=== PATIENT | female | born 1945 ===

== ENCOUNTER 2017-07-27 09:29 | Inpatient (IN) | payer MEDICARE, MEDICAID ==
--- NOTE | 2017-07-27 10:00 | ED PDOC ---
HPI:STROKE - Historian Historian: Patient - Onset Date: 07/21/17 Time: 01:00 - Timing Timing: Improved - TPA Positive for Contraindication: Yes - Notes: Notes:: Pt presents to ED with c/o "I had a stroke". Reports twisting of R side of face that started at 1 AM on 07/21/17, did not seek medical attention at that time. Also reports weakness of R eye, heaviness to R arm and R sided ROACH. Able to ambulate without assistance. States facial symptom has gotten better since then. Denies CP, SOB, nausea, vomiting, visual changes. NIHSS Stroke Scale - Date/Time Evaluation Performed Date Performed: 07/27/17 Time Performed: 09:50 When Was NIHSS Performed: Baseline - How Severe is the Stroke Level of Consciousness: 0=Alert LOC to Questions: 0=Both comments correct LOC to commands: 0=Obeys both correctly Best Gaze: 0=Normal Visual: 0=No visual loss Facial: 0=Normal Motor Arm - Left: 0=No drift Motor Arm - Right: 0=No drift Motor Leg - Left: 0=No drift Motor Leg - Right: 1=Drift before 5 sec Limb Ataxia: 0=Absent Sensory: 0=Normal Best Language: 0=No aphasia Dysarthia: 0=Normal articulation Extinction & Inattention (Neglect): 0=Normal, no object Score: 1 rTPA Inclusion/Exclusion - Refusal of Treatment Patient Refused Treatment: No - Inclusion Criteria for Altepase Patient is 18 years or Older: Yes The Clinical Diagnosis of Ischemic Stroke That is Causing a Potentially Disabling Neurological Deficit: No Time of Onset is Well Established to be Less Than 270 Minute Before Treatment Would Begin: No Risk/Benefit Discussed With Patient/Family Member Present: No Past Medical History Vital Signs: Last Vital Signs Temp 98.2 F 07/27/17 09:43 Pulse 77 07/27/17 09:43 Resp 19 07/27/17 09:43 BP 134/55 L 07/27/17 09:43 Pulse Ox 100 07/27/17 09:43 - Medical History PMH: Arthritis, Asthma, Diabetes, HTN, Hypercholesterolemia, Osteoporosis, Pancreatitis, TIA - Surgical History Surgical History: - Family History Family History: States: Unknown Family Hx - Living Arrangements Living Arrangements: Alone - Social History Current smoker - smoking cessation education provided: No Alcohol: None - Allergies Allergies/Adverse Reactions: Allergies Allergy/AdvReac Type Severity Reaction Status Date / Time iodine AdvReac ANAPHYLAXIS Verified 07/27/17 09:47 shellfish derived AdvReac ANAPHYLAXIS Verified 07/27/17 09:47 sulfacetamide AdvReac ANAPHYLAXIS Verified 07/27/17 09:47 [From Sulfamide] Review of Systems Constitutional: Negative for: Fever, Chills Eyes: Negative for: Vision Change Cardiovascular: Negative for: Chest Pain, Palpitations Respiratory: Negative for: Cough, Shortness of Breath Gastrointestinal: Negative for: Nausea, Vomiting, Abdominal Pain, Diarrhea Genitourinary Female: Negative for: Dysuria, Hematuria Musculoskeletal: Negative for: Neck Pain, Back Pain Skin: Negative for: Rash, Lesions Neurological: Positive for: Weakness, Numbness, Headache. Negative for: Incoordination, Change in Speech, Confusion, Seizures, Altered Mental Status, Dizziness Physical Exam - Reviewed Nursing Documentation Reviewed: Yes Vital Signs Reviewed: Yes - Physical Exam Appears: Positive for: Well, No Acute Distress Head Exam: Positive for: ATRAUMATIC, NORMAL INSPECTION Skin: Positive for: Normal Color, Warm, Dry Eye Exam: Positive for: Normal appearance, EOMI, PERRL Neck: Positive for: Normal Cardiovascular/Chest: Positive for: Regular Rate, Rhythm Respiratory: Positive for: Normal Breath Sounds. Negative for: Rales, Rhonchi, Wheezing Gastrointestinal/Abdominal: Positive for: Normal Exam Back: Positive for: Normal Inspection Extremity: Positive for: Normal ROM Neurologic/Psych: Positive for: Alert, documentation coordinator II-XII, Oriented, Motor/Sensory Deficits (RLE), Cerebellar Tests (WNL). Negative for: Aphasia, Facial Droop - Laboratory Results Result Diagrams: 07/27/17 10:09 07/27/17 10:09 - ECG Interpretation Of ECG: NSR @ 67, no ST-T changes. O2 Sat by Pulse Oximetry: 100 Pulse Ox Interpretation: Normal - Physician Consult Information Time Consulting Physican Contacted: 13:02 Physician Contacted: Sharona Damon Medical Decision Making Medical Decision Makin yo female with R sided deficits. - labs - EKG - CXR - CT head - ASA Accession No. : [id number] Patient Name / ID : BELÉN Mcdonough / [id number] Exam Date : 07/27/2017 09:55:28 ( Approved ) Study Comment : Sex / Age : F / 72Y Creator : Ryan Fajardo MD Dictator : Ryan Fajardo MD Artifacts Conservator : Library Customer Service Clerk : Ryan Fajardo MD Approver2 : Report Date : 07/27/2017 11:45:33 My Comment : HISTORY: CVA COMPARISON: Chest radiograph dated 05/14/2011 FINDINGS: LUNGS: Biapical scarring. No active pulmonary disease. PLEURA: No significant pleural effusion identified, no pneumothorax apparent. CARDIOVASCULAR: Normal. OSSEOUS STRUCTURES: Unchanged. VISUALIZED UPPER ABDOMEN: Normal. OTHER FINDINGS: None. IMPRESSION: No active disease. Accession No. : [id number] Patient Name / ID : BELÉN COLIN / [id number] Exam Date : 07/27/2017 10:11:10 ( Approved ) Study Comment : Sex / Age : F / 72Y Creator : Ryan Fajardo MD Dictator : Ryan Fajardo MD Artifacts Conservator : Library Customer Service Clerk : Ryan Fajardo MD Approver2 : Report Date : 07/27/2017 10:31:22 My Comment : PROCEDURE: CT HEAD WITHOUT CONTRAST. HISTORY: code stroke COMPARISON: CT head dated 03/30/2015. TECHNIQUE: Axial computed tomography images were obtained through the head/brain without intravenous contrast. Radiation dose: Total exam DLP = 799.7 mGy-cm. This CT exam was performed using one or more of the following dose reduction techniques: Automated exposure control, adjustment of the mA and/or kV according to patient size, and/or use of iterative reconstruction technique. FINDINGS: HEMORRHAGE: No intracranial hemorrhage. BRAIN: No mass effect or edema. Mild atrophy. Mild chronic periventricular white matter microvascular ischemic changes. VENTRICLES: Mildly prominent. No hydrocephalus. CALVARIUM: Unremarkable. PARANASAL SINUSES: Unremarkable as visualized. No significant inflammatory changes. MASTOID AIR CELLS: Unremarkable as visualized. No inflammatory changes. OTHER FINDINGS: None. IMPRESSION: No acute intracranial pathology. Disposition - Clinical Impression Clinical Impression: TIA (transient ischemic attack) - Patient ED Disposition Is Patient to be Admitted: Yes - Disposition Disposition Time: 12:58 Condition: STABLE Forms: Vouch (Wolof) - Pt Status Changed To: Hospital Disposition Of: Inpatient - Admit Certification Admit to Inpatient:: After my assessment, the patient will require hospitalization for at least two midnights. This is because of the severity of symptoms shown, intensity of services needed, and/or the medical risk in this patient being treated as an outpatient. - POA Present On Arrival: Poor Glycemic Control
[2017-07-27 10:14] LABS: BASO % 0.7 % (0.0-2.0); EOS # 0.2 K/uL (0.0-0.7); EOS % 3.3 % (0.0-4.0); HEMOGLOBIN 11.7 g/dL (12.0-16.0); LYMPH # 1.1 K/uL (1.0-4.3); LYMPH % 19.5 % (20.0-40.0); MEAN CELL VOLUME 88.2 fl (81.0-99.0); MEAN CORPUSCULAR HEMOGLOBIN 29.2 pg (27.0-31.0); MEAN CORPUSCULAR HGB CONC 33.1 g/dL (33.0-37.0); MEAN PLATELET VOLUME 8.2 fl (7.2-11.7); MONO # 0.6 K/uL (0.0-0.8); MONO % 9.7 % (0.0-10.0); NEUT # 3.8 K/uL (1.8-7.0); NEUT % 66.8 % (50.0-75.0); RED CELL DISTRIBUTION WIDTH 13.1 % (11.5-14.5); WHITE BLOOD COUNT 5.7 K/uL (4.8-10.8)
[2017-07-27 10:30] LABS: INR 1.1 (0.9-1.2); PROTHROMBIN TIME 12.1 Seconds (9.8-13.1)
--- NOTE | 2017-07-27 10:32 | CT ---
PROCEDURE: CT HEAD WITHOUT CONTRAST. HISTORY: code stroke COMPARISON: CT head dated 03/30/2015. TECHNIQUE: Axial computed tomography images were obtained through the head/brain without intravenous contrast. Radiation dose: Total exam DLP = 799.7 mGy-cm. This CT exam was performed using one or more of the following dose reduction techniques: Automated exposure control, adjustment of the mA and/or kV according to patient size, and/or use of iterative reconstruction technique. FINDINGS: HEMORRHAGE: No intracranial hemorrhage. BRAIN: No mass effect or edema. Mild atrophy. Mild chronic periventricular white matter microvascular ischemic changes. VENTRICLES: Mildly prominent. No hydrocephalus. CALVARIUM: Unremarkable. PARANASAL SINUSES: Unremarkable as visualized. No significant inflammatory changes. MASTOID AIR CELLS: Unremarkable as visualized. No inflammatory changes. OTHER FINDINGS: None. IMPRESSION: No acute intracranial pathology. Findings conveyed to Dr. Shaikh by Dr. Marx at 10:30 a.m. on 07/27/2017.
[2017-07-27 10:33] LABS: ALB/GLOB RATIO 1.3 (1.0-2.1); ALBUMIN 4.1 g/dL (3.5-5.0); ALT/SGPT 28 U/L (9-52); AST/SGOT 23 U/L (14-36); BLOOD UREA NITROGEN 16 mg/dl (7-17); CALCIUM 9.6 mg/dL (8.4-10.2); GFR AFRICAN-AMERICAN > 60; GFR NON-AFRICAN AMERICAN > 60; HDL CHOLESTEROL 46 MG/DL (30-70)
[2017-07-27 10:46] LABS: LDL CHOLESTEROL 40 mg/dL (0-129)
--- NOTE | 2017-07-27 11:47 | RAD ---
HISTORY: CVA COMPARISON: Chest radiograph dated 05/14/2011 FINDINGS: LUNGS: Biapical scarring. No active pulmonary disease. PLEURA: No significant pleural effusion identified, no pneumothorax apparent. CARDIOVASCULAR: Normal. OSSEOUS STRUCTURES: Unchanged. VISUALIZED UPPER ABDOMEN: Normal. OTHER FINDINGS: None. IMPRESSION: No active disease.
[2017-07-27] MEDS ORDERED: Insulin Regular 100 units/ml IV STA (12:58)
[2017-07-27] MEDS ORDERED: Insulin Regular 100 units/ml ONE (13:50)
[2017-07-27] MEDS ORDERED: Pantoprazole 40 mg EC Tab PO PRN (14:01)
--- NOTE | 2017-07-27 16:38 | CP.PCM.HP ---
<Diamond Burnette - Last Filed: 07/27/17 16:49> History of Present Illness - History of Present Illness History of Present Illness: 72 YO F who presents to the ER for Right sided weakness which started on 07/21/17 at 1am. Her son had told her that the right side of her face was asymetrical to the otherside and she felt weakness in her right arm as well. At that time she took her blood pressure and systolic is 180, she took her blood pressure medication and did not follow up with any medical professional at that time. She felt as her right arm felt heavy. Patient feels as if she is having increase in stiffness in her right arm and increase in discomfort. States she is unable to close her right hand. Denies any falls or head trauma. She is able to ambulate without any difficulties, is able to eat and speak without any difficulties. She had a similar episodes 2 years ago for which she stayed overnight in the hospital , however that was for the left side. PMH: DM 2, HTN, Hyperlipidemia, Breast cancer(1989), PSH: Left Mastectomy: 1989, hysterectomy 1991, Stomach surgery? Allergy: Ioddine: Contrast for CT scan caused her to have severe allergic reaction. Shellfish, Sulfa, Bactrim PMD: Dr. Dyson Present on Admission - Present on Admission Any Indicators Present on Admission: No Review of Systems - Review of Systems All systems: reviewed and no additional remarkable complaints except Past Patient History - Infectious Disease Hx of Infectious Diseases: None - Past Social History Smoking Status: Never Smoked - CARDIAC Hx Hypercholesterolemia: Yes Hx Hypertension: Yes - PULMONARY Hx Asthma: Yes - NEUROLOGICAL Hx Transient Ischemic Attacks (TIA): Yes - HEENT Hx HEENT Problems: No - RENAL Other/Comment: Renal disease - ENDOCRINE/METABOLIC Hx Diabetes Mellitus Type 2: Yes - HEMATOLOGICAL/ONCOLOGICAL Hx Cancer: Yes (Breast) - INTEGUMENTARY Hx Dermatological Problems: No - MUSCULOSKELETAL/RHEUMATOLOGICAL Hx Arthritis: Yes Hx Osteoporosis: Yes - GASTROINTESTINAL Hx Pancreatitis: Yes - GENITOURINARY/GYNECOLOGICAL Hx Genitourinary Disorders: No - PSYCHIATRIC Hx Psychophysiologic Disorder: No Hx Substance Use: No - SURGICAL HISTORY Hx Section: Yes Hx Hysterectomy: Yes Hx Mastectomy: Yes Other/Comment: Abdominal surgery for intestinal obstruction. - ANESTHESIA Hx Anesthesia: Yes Hx Anesthesia Reactions: No Hx Malignant Hyperthermia: No Meds Allergies/Adverse Reactions: Allergies Allergy/AdvReac Type Severity Reaction Status Date / Time iodine AdvReac ANAPHYLAXIS Verified 07/27/17 09:47 shellfish derived AdvReac ANAPHYLAXIS Verified 07/27/17 09:47 sulfacetamide AdvReac ANAPHYLAXIS Verified 07/27/17 09:47 [From Sulfamide] Physical Exam - Constitutional Appears: No Acute Distress - Head Exam Head Exam: NORMAL INSPECTION - Eye Exam Eye Exam: Normal appearance - Respiratory Exam Respiratory Exam: Clear to Auscultation Bilateral, NORMAL BREATHING PATTERN. absent: Rhonchi, Wheezes - Cardiovascular Exam Cardiovascular Exam: REGULAR RHYTHM, +S1, +S2 - GI/Abdominal Exam GI & Abdominal Exam: Normal Bowel Sounds, Soft. absent: Tenderness - Neurological Exam Neurological exam: Alert, CN II-XII Intact, Oriented x3 Additional comments: Right hand weakness on church warden compared to left hand. Cerebellar test WNL. DTR 2+ b /l. Sensation intact - Skin Skin Exam: Normal Color, Warm Results - Vital Signs Recent Vital Signs: Last Vital Signs Temp 98.2 F 07/27/17 14:38 Pulse 78 07/27/17 14:38 Resp 18 07/27/17 14:38 BP 130/68 07/27/17 14:38 Pulse Ox 100 07/27/17 14:38 - Labs Result Diagrams: 07/27/17 10:09 07/27/17 10:09 Labs: Laboratory Results - last 24 hr 07/27/17 07/27/17 07/27/17 10:07 10:09 10:09 WBC 5.7 RBC 4.00 Hgb 11.7 L Hct 35.3 MCV 88.2 MCH 29.2 MCHC 33.1 RDW 13.1 Plt Count 192 MPV 8.2 Neut % (Auto) 66.8 Lymph % (Auto) 19.[address] [place] % (Auto) 9.7 Eos % (Auto) 3.3 Baso % (Auto) 0.7 Neut # (Auto) 3.8 Lymph # (Auto) 1.1 [place] # (Auto) 0.6 Eos # (Auto) 0.2 Baso # (Auto) 0.0 PT INR APTT Sodium 141 Potassium 4.5 Chloride 100 Carbon Dioxide 30 Anion Gap 16 BUN 16 Creatinine 0.6 L Est GFR ( Amer) > 60 Est GFR (Non-Af Amer) > 60 POC Glucose (mg/dL) 199 H Random Glucose 237 H Calcium 9.6 Total Bilirubin 0.3 AST 23 ALT 28 Alkaline Phosphatase 60 Troponin I < 0.0120 Total Protein 7.2 Albumin 4.1 Globulin 3.1 Albumin/Globulin Ratio 1.3 Triglycerides 87 Cholesterol 113 LDL Cholesterol Direct 40 HDL Cholesterol 46 Blood Type Antibody Screen BBK History Checked 07/27/17 07/27/17 10:09 10:19 WBC RBC Hgb Hct MCV MCH MCHC RDW Plt Count MPV Neut % (Auto) Lymph % (Auto) [place] % (Auto) Eos % (Auto) Baso % (Auto) Neut # (Auto) Lymph # (Auto) [place] # (Auto) Eos # (Auto) Baso # (Auto) PT 12.1 INR 1.1 APTT 29.0 Sodium Potassium Chloride Carbon Dioxide Anion Gap BUN Creatinine Est GFR ( Amer) Est GFR (Non-Af Amer) POC Glucose (mg/dL) Random Glucose Calcium Total Bilirubin AST ALT Alkaline Phosphatase Troponin I Total Protein Albumin Globulin Albumin/Globulin Ratio Triglycerides Cholesterol LDL Cholesterol Direct HDL Cholesterol Blood Type A POSITIVE Antibody Screen Negative BBK History Checked Patient has bt Assessment & Plan - Assessment and Plan (Free Text) Assessment: 1) Right sided weakness - C/W low dose asprin - Neurology consulted - CT scan: Did not show any active bleeding - MRI w/ and w/o contrast ordered - Pt ordered - Will admit patiet for observation 2) HTN Lisinopril 2.5 daily 3) HLD Atrovastatin 20 mg 4) DM2 Metformin 500 mg BID 5) DVT prophylaxis - SCD <Yousif Nathan - Last Filed: 07/29/17 13:05> Results - Vital Signs Recent Vital Signs: Last Vital Signs Temp 98.4 F 07/29/17 13:00 Pulse 76 07/29/17 13:00 Resp 18 07/29/17 13:00 BP 112/60 07/29/17 13:00 Pulse Ox 97 07/29/17 13:00 - Labs Result Diagrams: 07/27/17 10:09 07/27/17 10:09 Labs: Laboratory Results - last 24 hr 07/28/17 07/28/17 07/29/17 16:21 21:23 06:41 POC Glucose (mg/dL) 143 H 149 H 134 H 07/29/17 11:20 POC Glucose (mg/dL) 266 H Assessment & Plan - Assessment and Plan (Free Text) Plan: I was present during the evaluation and discussed with Dr Burnette re plans of care and mgt. Yousif Nathan M.D.
[2017-07-27] MEDS ORDERED: Dextrose 50% SYRINGE Inj (50 ml) IV PRN (16:51)
[2017-07-27] MEDS ORDERED: Glucagon Recombinant 1 mg Inj IM PRN (16:51)
[2017-07-27] MEDS ORDERED: Gadodiamide 287 MG/ML VIAL (15ML) IV ONE (18:09)
--- NOTE | 2017-07-27 20:36 | MRI ---
EXAM: MR Head Without Intravenous Contrast CLINICAL HISTORY: 72 years old, female; Signs and symptoms; Other: TIA symptoms TECHNIQUE: Magnetic resonance images of the head/brain without intravenous contrast in multiple planes. COMPARISON: CT - HEAD W/O (CODE STROKE) 2017-07-27 10:11 FINDINGS: Brain: Mild atrophy. No intracranial hemorrhage. No mass. Scattered foci of high T2 signal within periventricular and subcortical white matter. No restricted diffusion. Ventricles: No hydrocephalus. Bones/joints: No acute fracture. Sinuses: Scattered mild mucosal thickening of ethmoid sinuses. Mastoid air cells: No mastoid effusion. Orbits: Unremarkable as visualized. IMPRESSION: 1. No MRI evidence of acute infarction. 2. Chronic ischemic white matter changes. 3. Incidental/non-acute findings are described above.
[2017-07-27] MEDS: Insulin Regular 100 units/ml SC SCH (22:17)
[2017-07-28] MEDS: Levothyroxine 50 MCG TAB PO SCH (06:48)
[2017-07-28] MEDS: Insulin Regular 100 units/ml SC SCH ×4 (06:48→22:19)
--- NOTE | 2017-07-28 10:27 | CARD ---
APPROVED REPORT EKG Measurement Heart [id number] <Conclusion> Normal sinus rhythm Normal ECG
[2017-07-29] MEDS: Levothyroxine 50 MCG TAB PO SCH (06:46)
[2017-07-29] MEDS: Insulin Regular 100 units/ml SC SCH ×2 (09:12→12:37)
[2017-07-29 13:04] VITALS: BP 112/60; PULSE 76; RESP 18; TEMP 98.4; O2SAT 97
--- NOTE | 2017-07-29 13:08 | CP.PCM.PN ---
Subjective - Date & Time of Evaluation Date of Evaluation: 07/28/17 Time of Evaluation: 10:00 - Subjective Subjective: Patient complains of slight weakness on the right upper ext Has no headaches Has no chest pain or SOB. Objective - Vital Signs/Intake and Output Vital Signs (last 24 hours): Temp Pulse Resp BP Pulse Ox 98.4 F 76 18 112/60 97 07/29/17 13:00 07/29/17 13:00 07/29/17 13:00 07/29/17 13:00 07/29/17 13:00 - Medications Medications: Current Medications Aspirin (Aspirin Chewable) 81 mg PO DAILY PENDING SALE TO [facility] Last Admin: 07/29/17 09:12 Dose: 81 mg Atorvastatin Calcium (Lipitor) 20 mg PO HS PENDING SALE TO [facility] Last Admin: 07/28/17 22:22 Dose: 20 mg Dextrose (Dextrose 50% Inj) 0 ml IV STAT PRN; Protocol PRN Reason: Hypoglycemia Protocol Dextrose (Glutose 15) 0 gm PO ONCE PRN; Protocol PRN Reason: Hypoglycemia Protocol Glucagon (Glucagen Diagnostic Kit) 0 mg IM STAT PRN; Protocol PRN Reason: Hypoglycemia Protocol Insulin Human Regular (Humulin R) 0 units SC [facility] PENDING SALE TO [facility] PRN Reason: Protocol Last Admin: 07/29/17 12:37 Dose: 3 units Levothyroxine Sodium (Synthroid) 50 mcg PO DAILY@0630 PENDING SALE TO [facility] Last Admin: 07/29/17 06:46 Dose: 50 mcg Lisinopril (Zestril) 2.5 mg PO DAILY PENDING SALE TO [facility] Last Admin: 07/29/17 09:12 Dose: 2.5 mg Metformin HCl (Glucophage) 500 mg PO BID PENDING SALE TO [facility] Last Admin: 07/29/17 09:12 Dose: 500 mg Pantoprazole Sodium (Protonix Ec Tab) 40 mg PO DAILY PRN PRN Reason: Heartburn Last Admin: 07/29/17 09:13 Dose: 40 mg - Labs Labs: 07/27/17 10:09 07/27/17 10:09 PT 12.1 Seconds (9.8-13.1) 07/27/17 10:09 INR 1.1 (0.9-1.2) 07/27/17 10:09 APTT 29.0 Seconds (25.6-37.1) 07/27/17 10:09 - Head Exam Head Exam: NORMAL INSPECTION - Eye Exam Eye Exam: Normal appearance - ENT Exam ENT Exam: Mucous Membranes Moist - Respiratory Exam Respiratory Exam: Clear to Ausculation Bilateral - Cardiovascular Exam Cardiovascular Exam: REGULAR RHYTHM - GI/Abdominal Exam GI & Abdominal Exam: Normal Bowel Sounds - Neurological Exam Neurological Exam: Awake, Normal Gait, Oriented x3 Assessment and Plan (1) TIA (transient ischemic attack) Status: Acute (2) Diabetes mellitus type 2 in nonobese Status: Acute (3) Hypothyroidism Status: Acute (4) Hyperlipidemia Status: Acute - Assessment and Plan (Free Text) Plan: Cont meds restart po meds from akash start PT cont monitor follow up MRI.
--- NOTE | 2017-07-29 13:11 | CP.PCM.DIS ---
Provider - Provider Date of Admission: 07/27/17 12:57 Attending physician: Yousif Nathan MD Time Spent in preparation of Discharge (in minutes): 30 Diagnosis - Discharge Diagnosis (1) TIA (transient ischemic attack) Status: Acute (2) Diabetes mellitus type 2 in nonobese Status: Acute (3) Hypothyroidism Status: Acute (4) Hyperlipidemia Status: Acute Hospital Course - Lab Results Lab Results: Most Recent Lab Values WBC 5.7 K/uL (4.8-10.8) 07/27/17 10:09 RBC 4.00 Mil/uL (3.80-5.20) 07/27/17 10:09 Hgb 11.7 g/dL (12.0-16.0) L 07/27/17 10:09 Hct 35.3 % (34.0-47.0) 07/27/17 10:09 MCV 88.2 fl (81.0-99.0) 07/27/17 10:09 MCH 29.2 pg (27.0-31.0) 07/27/17 10:09 MCHC 33.1 g/dL (33.0-37.0) 07/27/17 10:09 RDW 13.1 % (11.5-14.5) 07/27/17 10:09 Plt Count 192 K/uL (130-400) 07/27/17 10:09 MPV 8.2 fl (7.2-11.7) 07/27/17 10:09 Neut % (Auto) 66.8 % (50.0-75.0) 07/27/17 10:09 Lymph % (Auto) 19.5 % (20.0-40.0) L 07/27/17 10:09 [place] % (Auto) 9.7 % (0.0-10.0) 07/27/17 10:09 Eos % (Auto) 3.3 % (0.0-4.0) 07/27/17 10:09 Baso % (Auto) 0.7 % (0.0-2.0) 07/27/17 10:09 Neut # (Auto) 3.8 K/uL (1.8-7.0) 07/27/17 10:09 Lymph # (Auto) 1.1 K/uL (1.0-4.3) 07/27/17 10:09 [place] # (Auto) 0.6 K/uL (0.0-0.8) 07/27/17 10:09 Eos # (Auto) 0.2 K/uL (0.0-0.7) 07/27/17 10:09 Baso # (Auto) 0.0 K/uL (0.0-0.2) 07/27/17 10:09 PT 12.1 Seconds (9.8-13.1) 07/27/17 10:09 INR 1.1 (0.9-1.2) 07/27/17 10:09 APTT 29.0 Seconds (25.6-37.1) 07/27/17 10:09 Sodium 141 mmol/l (132-148) 07/27/17 10:09 Potassium 4.5 MMOL/L (3.6-5.0) 07/27/17 10:09 Chloride 100 mmol/L (98-107) 07/27/17 10:09 Carbon Dioxide 30 mmol/L (22-30) 07/27/17 10:09 Anion Gap 16 (10-20) 07/27/17 10:09 BUN 16 mg/dl (7-17) 07/27/17 10:09 Creatinine 0.6 mg/dl (0.7-1.2) L 07/27/17 10:09 Est GFR ( Amer) > 60 07/27/17 10:09 Est GFR (Non-Af Amer) > 60 07/27/17 10:09 POC Glucose (mg/dL) 266 mg/dL (65-110) H 07/29/17 11:20 Random Glucose 237 mg/dL (65-105) H 07/27/17 10:09 Calcium 9.6 mg/dL (8.4-10.2) 07/27/17 10:09 Total Bilirubin 0.3 mg/dl (0.2-1.3) 07/27/17 10:09 AST 23 U/L (14-36) 07/27/17 10:09 ALT 28 U/L (9-52) 07/27/17 10:09 Alkaline Phosphatase 60 U/L (38-126) 07/27/17 10:09 Troponin I < 0.0120 ng/mL (0.00-0.120) 07/27/17 10:09 Total Protein 7.2 G/DL (6.3-8.2) 07/27/17 10:09 Albumin 4.1 g/dL (3.5-5.0) 07/27/17 10:09 Globulin 3.1 gm/dL (2.2-3.9) 07/27/17 10:09 Albumin/Globulin Ratio 1.3 (1.0-2.1) 07/27/17 10:09 Triglycerides 87 mg/DL (0-149) 07/27/17 10:09 Cholesterol 113 mg/dL (0-199) 07/27/17 10:09 LDL Cholesterol Direct 40 mg/dL (0-129) 07/27/17 10:09 HDL Cholesterol 46 MG/DL (30-70) 07/27/17 10:09 Blood Type A POSITIVE 07/27/17 10:19 Antibody Screen Negative 07/27/17 10:19 BBK History Checked Patient has bt 07/27/17 10:19 - Hospital Course Hospital Course: This is a 72 y/o female with hx of Hyperlipidemia hypothyroidism and DM 2 admitted for right upper ext weakness. Had no chest pain SOB or headaches. Initial CT scan was unremarkable. Patient was admitted due to persistent right upper ext weakness. Discharge Exam - Head Exam Head Exam: NORMAL INSPECTION - Eye Exam Eye Exam: Normal appearance - Respiratory Exam Respiratory Exam: NORMAL BREATHING PATTERN - Cardiovascular Exam Cardiovascular Exam: REGULAR RHYTHM - GI/Abdominal Exam GI & Abdominal Exam: Normal Bowel Sounds - Neurological Exam Neurological exam: CN II-XII Intact, Oriented x3 - Psychiatric Exam Psychiatric exam: Normal Mood Discharge Plan - Follow Up Plan Condition: STABLE Disposition: HOME/ ROUTINE Additional Instructions: advised follow up in 1 week started on higher dose of metformin. added januvia and crestor and ASA.
== END 2017-07-29 16:20 | disposition home or self-care (01) | DRG 69 ==
LOC: H.ER 09:29 → H.ERHOLD 12:57 → H.TEL 16:45
PROVIDERS: ADMIT Family Medicine; ATTEND Family Medicine
DX: G45.9 Transient cerebral ischemic attack, unspecified (principal); E11.9 Type 2 diabetes mellitus without complications; E03.9 Hypothyroidism, unspecified; E78.00 Pure hypercholesterolemia, unspecified; E78.5 Hyperlipidemia, unspecified; I10 Essential (primary) hypertension; J45.909 Unspecified asthma, uncomplicated; M81.0 Age-related osteoporosis without current pathological fracture; Z79.84 Long term (current) use of oral hypoglycemic drugs; Z85.3 Personal history of malignant neoplasm of breast; Z86.73 Personal history of transient ischemic attack (TIA), and cerebral infarction without residual deficits; Z90.710 Acquired absence of both cervix and uterus; M19.90 Unspecified osteoarthritis, unspecified site; N28.9 Disorder of kidney and ureter, unspecified

== ENCOUNTER 2017-08-27 21:53 | Observation (INO) | payer MEDICARE, MEDICAID ==
--- NOTE | 2017-08-27 22:56 | ED PDOC ---
HPI:STROKE - Historian Historian: Patient - Chief Complaint Chief Complaint: Numbness (left lower facial), other (headache) - Onset Date: 08/27/17 Time: 12:00 - Timing Timing: Currently Symptomatic - Context Context: Sitting - Quality of Pain Quality of Pain:: Pressure - TPA Positive for Contraindication: Yes Reason tPA is not being Administered: Onset of symptons out of the window for tPA + NIH stroke is 0 - Notes: Notes:: Megan Jang is a 72 year old female, with a past medical history of HTN, diabetes and TIA, who presents to the emergency department complaining of a headache associated with left lower facial numbness onset since noon today. She reports around noon she was sitting down and felt like her body became weak, around 16:00 she began having a headache. Patient states the pain is localized to the front and back of the head and describes it as pressure. Patient has been previously admitted for TIAs in the past and is currently taking aspirin. She denies any numbness or weakness to extremities, blurry vision or other medical complaints. PMD: None provided. NIHSS Stroke Scale - Date/Time Evaluation Performed Date Performed: 08/27/17 Time Performed: 22:35 When Was NIHSS Performed: Baseline - How Severe is the Stroke Level of Consciousness: 0=Alert LOC to Questions: 0=Both comments correct LOC to commands: 0=Obeys both correctly Best Gaze: 0=Normal Visual: 0=No visual loss Facial: 0=Normal Motor Arm - Left: 0=No drift Motor Arm - Right: 0=No drift Motor Leg - Left: 0=No drift Motor Leg - Right: 0=No drift Limb Ataxia: 0=Absent Sensory: 0=Normal Best Language: 0=No aphasia Dysarthia: 0=Normal articulation Extinction & Inattention (Neglect): 0=Normal, no object Score: 0 rTPA Inclusion/Exclusion - Refusal of Treatment Patient Refused Treatment: No - Inclusion Criteria for Altepase Patient is 18 years or Older: Yes The Clinical Diagnosis of Ischemic Stroke That is Causing a Potentially Disabling Neurological Deficit: No Time of Onset is Well Established to be Less Than 270 Minute Before Treatment Would Begin: No Risk/Benefit Discussed With Patient/Family Member Present: No Past Medical History Reviewed: Historical Data, Nursing Documentation, Vital Signs Vital Signs: Last Vital Signs Temp 98.2 F 08/27/17 21:56 Pulse 87 03/12/18 21:56 Resp 18 08/27/17 21:56 BP 156/75 H 08/27/17 21:56 Pulse Ox 96 08/27/17 21:56 - Medical History PMH: Arthritis, Asthma, Diabetes, HTN, Hypercholesterolemia, Osteoporosis, Pancreatitis, TIA Denies: Chronic Kidney Disease - Surgical History Surgical History: - Family History Family History: States: Unknown Family Hx - Home Medications Home Medications: Ambulatory Orders Medication Instructions Recorded Levothyroxine [Synthroid] 50 mcg PO DAILY 07/27/17 Lisinopril [Zestril] 2.5 mg PO DAILY 07/27/17 Pantoprazole Sodium [Protonix] 40 mg PO DAILY PRN 07/27/17 Simvastatin [Zocor] 40 mg PO HS 07/27/17 metFORMIN [glucOPHAGE] 500 mg PO BID 07/27/17 - Allergies Allergies/Adverse Reactions: Allergies Allergy/AdvReac Type Severity Reaction Status Date / Time iodine AdvReac ANAPHYLAXIS Verified 08/28/17 02:24 shellfish derived AdvReac ANAPHYLAXIS Verified 08/28/17 02:24 sulfacetamide AdvReac ANAPHYLAXIS Verified 08/28/17 02:24 [From Sulfamide] Review of Systems ROS Statement: Except As Marked, All Systems Reviewed And Found Negative Eyes: Negative for: Vision Change (blurry vision) Neurological: Positive for: Numbness (left lower facial ), Headache. Negative for: Weakness (extremities.) Physical Exam - Reviewed Nursing Documentation Reviewed: Yes Vital Signs Reviewed: Yes - Physical Exam Appears: Positive for: Non-toxic Head Exam: Positive for: ATRAUMATIC, NORMAL INSPECTION, NORMOCEPHALIC Skin: Positive for: Normal Color, Warm, Dry Eye Exam: Positive for: Normal appearance, EOMI, PERRL Neck: Positive for: Painless ROM, Supple Cardiovascular/Chest: Positive for: Regular Rate, Rhythm. Negative for: Murmur Respiratory: Positive for: Normal Breath Sounds. Negative for: Respiratory Distress Gastrointestinal/Abdominal: Positive for: Normal Exam, Soft. Negative for: Tenderness Extremity: Positive for: Normal ROM. Negative for: Tenderness, Deformity, Swelling Neurologic/Psych: Positive for: Alert, Oriented (x3), Gait (steady). Negative for: Motor/Sensory Deficits, Aphasia, Facial Droop - Laboratory Results Result Diagrams: 08/27/17 23:06 08/27/17 23:06 - ECG O2 Sat by Pulse Oximetry: 96 (RA) Pulse Ox Interpretation: Normal Medical Decision Making Medical Decision Making: Initial Impression: Headache, Facial numbness, CVA, Facial neuropathy Initial Plan: --Head w/o contrast [CT] --EKG --Alcohol serum --BMP --Drug screen, Urine --Troponin I --CBC w/ differential --Reevaluation 00:52 EXAM: CT Head Without Intravenous Contrast CLINICAL HISTORY: 72 years old, female; Pain and signs and symptoms; Weakness, facial; Headache; Additional info: Headache left facial numbness TECHNIQUE: Axial computed tomography images of the head/brain without intravenous contrast. All CT scans at this facility use one or more dose reduction techniques, viz.: automated exposure control; ma/kV adjustment per patient size (including targeted exams where dose is matched to indication; i.e. head); or iterative reconstruction technique. Coronal and sagittal reformatted images were created and reviewed. COMPARISON: CT - HEAD W/O (CODE STROKE) 2017-07-27 10:11 FINDINGS: Brain: Mild atrophy. No intracranial hemorrhage. No mass. Few scattered foci of decreased attenuation within periventricular/subcortical white matter. Probable chronic lacunar infarct about LEFT basal ganglia. No definite edema. Ventricles: No hydrocephalus. Bones/joints: No acute fracture. Soft tissues: Unremarkable. Vasculature: Mild atherosclerotic disease of intracranial arteries. Sinuses: No acute sinusitis. Mastoid air cells: No mastoid effusion. Orbits: Unremarkable as visualized. IMPRESSION: 1. Nonspecific white matter changes. Acute infarction may be CT occult within first 24 hours. If a focal deficit persists, consider followup CT or MRI for further evaluation. 2. Incidental/non-acute findings are described above. Scribe Attestation: Documented by Cresencio Linares, acting as a scribe for Trent You MD. Provider Scribe Attestation: All medical record entries made by the Scribe were at my direction and personally dictated by me. I have reviewed the chart and agree that the record accurately reflects my personal performance of the history, physical exam, medical decision making, and the department course for this patient. I have also personally directed, reviewed, and agree with the discharge instructions and disposition. Disposition - Clinical Impression Clinical Impression: Left facial numbness, Headache - Patient ED Disposition Is Patient to be Admitted: Yes Discussed With : Gissel Angeles Doctor Will See Patient In The: Hospital Counseled Patient/Family Regarding: Studies Performed, Diagnosis - Disposition Disposition Time: 02:00 Condition: FAIR - Pt Status Changed To: Hospital Disposition Of: Observation - POA Present On Arrival: None
[2017-08-27 23:10] LABS: BASO # 0.1 K/uL (0.0-0.2); BASO % 0.7 % (0.0-2.0); EOS # 0.3 K/uL (0.0-0.7); EOS % 3.7 % (0.0-4.0); HEMOGLOBIN 11.5 g/dL (12.0-16.0); LYMPH # 1.8 K/uL (1.0-4.3); LYMPH % 24.1 % (20.0-40.0); MEAN CELL VOLUME 88.5 fl (81.0-99.0); MEAN CORPUSCULAR HEMOGLOBIN 29.7 pg (27.0-31.0); MEAN CORPUSCULAR HGB CONC 33.5 g/dL (33.0-37.0); MEAN PLATELET VOLUME 8.4 fl (7.2-11.7); MONO # 0.8 K/uL (0.0-0.8); MONO % 10.9 % (0.0-10.0); NEUT # 4.5 K/uL (1.8-7.0); NEUT % 60.6 % (50.0-75.0); NRBC % 0.1 % (0.0-0.0); RBC 3.88 Mil/uL (3.80-5.20); RED CELL DISTRIBUTION WIDTH 13.5 % (11.5-14.5); WHITE BLOOD COUNT 7.5 K/uL (4.8-10.8)
[2017-08-27 23:21] LABS: CALCIUM 9.3 mg/dL (8.4-10.2); GFR AFRICAN-AMERICAN > 60; GFR NON-AFRICAN AMERICAN > 60
[2017-08-27 23:50] LABS: BLOOD UREA NITROGEN 19 mg/dl (7-17)
--- NOTE | 2017-08-28 00:53 | CT ---
EXAM: CT Head Without Intravenous Contrast CLINICAL HISTORY: 72 years old, female; Pain and signs and symptoms; Weakness, facial; Headache; Additional info: Headache left facial numbness TECHNIQUE: Axial computed tomography images of the head/brain without intravenous contrast. All CT scans at this facility use one or more dose reduction techniques, viz.: automated exposure control; ma/kV adjustment per patient size (including targeted exams where dose is matched to indication; i.e. head); or iterative reconstruction technique. Coronal and sagittal reformatted images were created and reviewed. COMPARISON: CT - HEAD W/O (CODE STROKE) 2017-07-27 10:11 FINDINGS: Brain: Mild atrophy. No intracranial hemorrhage. No mass. Few scattered foci of decreased attenuation within periventricular/subcortical white matter. Probable chronic lacunar infarct about LEFT basal ganglia. No definite edema. Ventricles: No hydrocephalus. Bones/joints: No acute fracture. Soft tissues: Unremarkable. Vasculature: Mild atherosclerotic disease of intracranial arteries. Sinuses: No acute sinusitis. Mastoid air cells: No mastoid effusion. Orbits: Unremarkable as visualized. IMPRESSION: 1. Nonspecific white matter changes. Acute infarction may be CT occult within first 24 hours. If a focal deficit persists, consider followup CT or MRI for further evaluation. 2. Incidental/non-acute findings are described above.
[2017-08-28 08:58] LABS: HEMOGLOBIN 12.4 g/dL (12.0-16.0); MEAN CELL VOLUME 88.4 fl (81.0-99.0); MEAN CORPUSCULAR HEMOGLOBIN 29.3 pg (27.0-31.0); MEAN CORPUSCULAR HGB CONC 33.2 g/dL (33.0-37.0); RBC 4.22 Mil/uL (3.80-5.20); RED CELL DISTRIBUTION WIDTH 13.2 % (11.5-14.5); WHITE BLOOD COUNT 6.2 K/uL (4.8-10.8)
[2017-08-28 09:23] LABS: BLOOD UREA NITROGEN 15 mg/dl (7-17); CALCIUM 9.5 mg/dL (8.4-10.2); GFR AFRICAN-AMERICAN > 60; GFR NON-AFRICAN AMERICAN > 60; HDL CHOLESTEROL 45 MG/DL (30-70)
[2017-08-28 10:17] LABS: LDL CHOLESTEROL 50 mg/dL (0-129)
[2017-08-28] MEDS: Enoxaparin 40 mg Syringe SC SCH (11:29)
[2017-08-28] MEDS: Levothyroxine 50 MCG TAB PO SCH (11:29)
[2017-08-28] MEDS: Pantoprazole 40 mg EC Tab PO SCH (11:31)
--- NOTE | 2017-08-28 12:39 | CARD ---
APPROVED REPORT EKG Measurement Heart [id number] <Conclusion> Normal sinus rhythm Normal ECG
--- NOTE | 2017-08-28 14:58 | CARD ---
APPROVED REPORT EXAM: Two-dimensional and M-mode echocardiogram with Doppler and color Doppler. Other Information Quality : GoodRhythm : NSR INDICATION CVA/TIA 2D DIMENSIONS IVSd0.80 (0.7-1.1cm)LVDd3.67 (3.9-5.9cm) LVOT Diameter1.82 (1.8-2.4cm)PWd0.76 (0.7-1.1cm) IVSs1.08 (0.8-1.2cm)LVDs2.63 (2.5-4.0cm) FS (%) 28.2 %PWs1.05 (0.8-1.2cm) M-Mode DIMENSIONS Left Atrium (MM)3.63 (2.5-4.0cm)IVSd0.82 (0.7-1.1cm) Aortic Root2.91 (2.2-3.7cm)LVDd4.74 (4.0-5.6cm) Aortic Cusp Exc.1.80 (1.5-2.0cm)PWd0.85 (0.7-1.1cm) IVSs1.21 cmFS (%) 32 % LVDs3.24 (2.0-3.8cm)PWs1.08 cm Mitral Valve MV E Rwcdwapw08.6cm/sMV DECEL [id number] A Ervxcaxt980.5cm/s MV HJH16yfF/A ratio0.7MVA (PHT)3.33cm2 TDI Lateral E' Peak V8.15cm/sMedial E' Peak V5.46cm/sE/Lateral E'10.3 E/Medial E'15.3 Pulmonary Valve PV Peak Qxurylgv13.6cm/s Tricuspid Valve TR Peak Gbiazgnw357ny/sRAP WNVRXEBL13mfKdIG Peak Gr.17mmHg LULM33cwAp LEFT VENTRICLE The left ventricle is normal size. There is normal left ventricular wall thickness. The left ventricular function is normal. The left ventricular ejection fraction is within the normal range. The Ejection Fraction is 60-65%. There is normal LV segmental wall motion. The left ventricular diastolic function is normal. RIGHT VENTRICLE The right ventricle is normal size. The right ventricular systolic function is normal. ATRIA The left atrium size is normal. The right atrium size is normal. AORTIC VALVE The aortic valve is normal in structure. No aortic regurgitation is present. There is no aortic valvular stenosis. MITRAL VALVE The mitral valve is normal in structure. There is no mitral valve stenosis. There is no mitral valve regurgitation noted. TRICUSPID VALVE The tricuspid valve is normal in structure. There is no tricuspid valve regurgitation noted. There is no tricuspid valve stenosis. PULMONIC VALVE The pulmonary valve is normal in structure. There is no pulmonic valvular regurgitation. GREAT VESSELS The aortic root is normal in size. The IVC is normal in size and collapses >50% with inspiration. PERICARDIAL EFFUSION The pericardium appears normal. <Conclusion> The left ventricle is normal size. The left ventricular function is normal. The left ventricular ejection fraction is within the normal range. The Ejection Fraction is 60-65%.
[2017-08-28 15:15] LABS: BARBITURATES, UR NEGATIVE (NEGATIVE); BENZODIAZEPINES, UR NEGATIVE (NEGATIVE); OPIATES, UR NEGATIVE (NEGATIVE); PHENCYCLIDINE, UR NEGATIVE (NEGATIVE)
--- NOTE | 2017-08-28 17:48 | US ---
PROCEDURE: Duplex ultrasound of the carotid and vertebral arteries. HISTORY: TIA. COMPARISON: 10/09/2009 TECHNIQUE: Grayscale and duplex Doppler evaluation of the cervical carotid and vertebral arteries were performed. The common carotid, carotid bifurcations and cervical ICA and proximal ECA were evaluated. The vertebral arteries were evaluated for gross patency and direction. FINDINGS: RIGHT CAROTID ARTERIES: Common Carotid Artery: Intimal thickening is present Maximal flow velocity of 71.6 cm/s. Carotid Bifurcation: Normal. Internal Carotid Artery:Heterogeneous plaque formation. Maximal flow velocity of 92.7 cm/s. External Carotid Artery (proximal branches): Normal. Maximal flow velocity of 94.1 cm/s. ICA/CCA Ratio: 2.2 LEFT CAROTID ARTERIES: Common Carotid Artery: Intimal thickening is present Maximal flow velocity of 64.3 cm/s. Carotid Bifurcation: Normal. Internal Carotid Artery:Heterogeneous plaque formation. Maximal flow velocity of 80.0 cm/s. External Carotid Artery (proximal branches): Normal. Maximal flow velocity of 79.1 cm/s. ICA/CCA Ratio: 1.6 VERTEBRAL ARTERIES: Right Vertebral Artery: Patent. Antegrade flow. Left Vertebral Artery: Patent. Antegrade flow. OTHER FINDINGS: None. IMPRESSION: No significant interval change compared to the prior examination(s). Right ICA degree of stenosis: Less than 50% Left ICA degree of stenosis: Less than 50% Reference Internal Carotid Artery (ICA) Peak Systolic Velocity (PSV) for above: 1. Less than 50% stenosis less than 125 cm/s peak systolic velocity 2. 50-69% stenosis 125-230cm/s peak systolic velocity 3. Greater than 70% but less than near occlusion greater than 230 cm/s peak systolic velocity
[2017-08-29] MEDS: Levothyroxine 50 MCG TAB PO SCH (06:58)
[2017-08-29] MEDS: Enoxaparin 40 mg Syringe SC SCH (08:59)
[2017-08-29] MEDS: Pantoprazole 40 mg EC Tab PO SCH (09:02)
--- NOTE | 2017-08-29 10:04 | CP.PCM.CON ---
History of Present Illness - History of Present Illness History of Present Illness: Ms. Jang is 72 year old female, with a past medical history of HTN, diabetes and TIA, who presents to the emergency department complaining of a headache associated with left lower facial numbness onset since noon on 2017. She reports around noon she was sitting down and felt like her body became weak, around 16:00 she began having a headache. Patient states the pain is localized to the front and back of the head and describes it as pressure. Patient has been previously admitted for TIAs in the past and is currently taking aspirin. She denies any numbness or weakness to extremities, blurry vision or other medical complaints. Review of Systems - Review of Systems All systems: reviewed and no additional remarkable complaints except Past Patient History - Infectious Disease Hx of Infectious Diseases: None - Past Medical History & Family History Past Medical History?: Yes - Past Social History Smoking Status: Never Smoked - CARDIAC Hx Hypercholesterolemia: Yes Hx Hypertension: Yes - PULMONARY Hx Asthma: Yes - NEUROLOGICAL Hx Transient Ischemic Attacks (TIA): Yes - HEENT Hx HEENT Problems: No - RENAL Hx Chronic Kidney Disease: No - ENDOCRINE/METABOLIC Hx Endocrine Disorders: Yes Hx Diabetes Mellitus Type 2: Yes Hx Hypothyroidism: Yes - HEMATOLOGICAL/ONCOLOGICAL Hx AIDS: No Hx Cancer: Yes (Breast) Hx Human Immunodeficiency Virus (HIV): No Other/Comment: left breast mastectomy chemo pills - INTEGUMENTARY Hx Dermatological Problems: No - MUSCULOSKELETAL/RHEUMATOLOGICAL Hx Arthritis: Yes Hx Falls: No Hx Osteoporosis: Yes - GASTROINTESTINAL Hx Pancreatitis: Yes - GENITOURINARY/GYNECOLOGICAL Hx Genitourinary Disorders: No - PSYCHIATRIC Hx Psychophysiologic Disorder: No Hx Substance Use: No - SURGICAL HISTORY Hx Section: Yes Hx Hysterectomy: Yes Hx Mastectomy: Yes Other/Comment: Abdominal surgery for intestinal obstruction. - ANESTHESIA Hx Anesthesia: Yes Hx Anesthesia Reactions: No Hx Malignant Hyperthermia: No Has any member of the family had a problem w/ anesthesia?: No Meds Allergies/Adverse Reactions: Allergies Allergy/AdvReac Type Severity Reaction Status Date / Time iodine AdvReac ANAPHYLAXIS Verified 08/28/17 02:24 shellfish derived AdvReac ANAPHYLAXIS Verified 08/28/17 02:24 sulfacetamide AdvReac ANAPHYLAXIS Verified 08/28/17 02:24 [From Sulfamide] - Medications Medications: Current Medications Acetaminophen (Tylenol 325mg Tab) 650 mg PO Q6 PRN PRN Reason: Headache Aspirin (Aspirin) 325 mg PO DAILY [facility] Last Admin: 08/29/17 09:04 Dose: 325 mg Atorvastatin Calcium (Lipitor) 20 mg PO HS [facility] Last Admin: 08/28/17 22:16 Dose: 20 mg Enoxaparin Sodium (Lovenox) 40 mg SC DAILY [facility] PRN Reason: Protocol Last Admin: 08/29/17 08:59 Dose: 40 mg Levothyroxine Sodium (Synthroid) 50 mcg PO DAILY@0630 [facility] Last Admin: 08/29/17 06:58 Dose: 50 mcg Lisinopril (Zestril) 2.5 mg PO DAILY [facility] Last Admin: 08/29/17 09:02 Dose: 2.5 mg Metformin HCl (Glucophage) 500 mg PO BID [facility] Last Admin: 08/29/17 08:59 Dose: 500 mg Pantoprazole Sodium (Protonix Ec Tab) 40 mg PO DAILY [facility] Last Admin: 08/29/17 09:02 Dose: 40 mg Physical Exam - Constitutional Appears: No Acute Distress - Head Exam Head Exam: NORMAL INSPECTION - Eye Exam Pupil Exam: PERRL - ENT Exam ENT Exam: Mucous Membranes Moist, Normal Exam - Cardiovascular Exam Cardiovascular Exam: +S1, +S2 - GI/Abdominal Exam GI & Abdominal Exam: Normal Bowel Sounds, Soft. absent: Tenderness - Extremities Exam Extremities exam: Positive for: normal inspection - Neurological Exam Neurological exam: Alert, CN II-XII Intact, Normal Gait, Oriented x3, Reflexes Normal - Expanded Neurological Exam Expanded Patient oriented to: person, place, time Cranial nerves: EOM's Intact: Normal, Facial Sensation: Normal, Nystagmus: Normal, Tongue Deviation: Normal Ataxia: No Cerebellar Function: Finger to Nose: Normal, Heel to Feldman: Normal, Romberg: Normal Upper motor neuron: Babinski Sign: Normal, Pronator Drift: Normal, Sensory Extinction: Normal Sensory exam: Lower Extremity 2 Point Discrimination: Normal, Lower Extremity Light Touch: Normal, Lower Extremity Pin Prick: Normal, Lower Extremity Temperature: Normal, Upper Extremity 2 Point Discrimination: Normal, Upper Extremity Light Touch: Normal, Upper Extremity Pin Prick: Normal, Upper Extremity Temperature: Normal Neuro motor strength exam: Left Upper Extremity: 5, Right Upper Extremity: 5, Left Lower Extremity: 5, Right Lower Extremity: 5 Coma Scale Eye Opening: SPONTANEOUS Results - Vital Signs Recent Vital Signs: Last Vital Signs Temp 97.6 F 08/29/17 08:09 Pulse 72 08/29/17 09:02 Resp 18 08/29/17 08:09 BP 105/65 08/29/17 09:02 Pulse Ox 97 08/29/17 08:09 - Labs Result Diagrams: 08/28/17 08:35 08/28/17 08:35 Labs: Laboratory Results - last 24 hr 08/28/17 08/28/17 08/28/17 08:35 08:35 12:30 POC Glucose (mg/dL) Hemoglobin A1c 7.8 H LDL Cholesterol Direct 50 Urine Opiates Screen Negative Urine Methadone Screen Negative Ur Barbiturates Screen Negative Ur Phencyclidine Scrn Negative Ur Amphetamines Screen Negative U Benzodiazepines Scrn Negative U Oth Cocaine Metabols Negative U Cannabinoids Screen Negative 08/28/17 08/28/17 08/29/17 17:12 21:37 05:09 POC Glucose (mg/dL) 111 H 106 142 H Hemoglobin A1c LDL Cholesterol Direct Urine Opiates Screen Urine Methadone Screen Ur Barbiturates Screen Ur Phencyclidine Scrn Ur Amphetamines Screen U Benzodiazepines Scrn U Oth Cocaine Metabols U Cannabinoids Screen Assessment & Plan (1) TIA (transient ischemic attack) Assessment and Plan: 72 years old, female; came in with Weakness, facial; Headache, left facial numbness. Case discussed with Dr. Go, recommend the following 1. Telemetry monitoring 2. echocardiogram- showed normal 3. MRI of the brain without contrast, MRA of the head and neck without contrast. 4. Dual antiplatelet aspirin 81 mg PO daily and plavix 75 mg PO daily for 21 days then continue plavix 75 mg PO daily per Chance trial. 5. PT, OT, ST eval and treat. 6. hypercoagulopathy study- lupus, prothrombin gene analysis, vitamin B12, vitamin D, ESR, CRP. Status: Acute
--- NOTE | 2017-08-29 10:26 | MRI ---
PROCEDURE: MRI BRAIN WITHOUT CONTRAST HISTORY: R/O CVA COMPARISON: Comparison made with prior CT scan brain dated 08/27/2017 comparison also made with prior MRI of the brain 10/10/2009. TECHNIQUE: Multiplanar, multisequence MR images of the brain were obtained without intravenous contrast enhancement. FINDINGS: HEMORRHAGE: No acute parenchymal, subarachnoid nor extra-axial hemorrhage. No evidence of hemosiderin deposition seen on gradient echo weighted sequence. DWI: No evidence of an acute or early subacute infarction seen on diffusion imaging. . BRAIN PARENCHYMA: Mild moderate diffuse/confluent chronic white matter ischemic changes seen extending peripherally into the the deep and subcortical white matter both cerebral hemispheres. Multiple more discrete focal areas of increased T2 signal scattered about the deep and subcortical white matter also noted. None of these changes exhibit restricted diffusion. . Mild generalized volume loss VENTRICLES: No obstructive hydrocephalus. CRANIUM: Calvarium appears unremarkable ORBITS: Orbits and contents appear grossly unremarkable. PARANASAL SINUSES/MASTOIDS: Clear VASCULAR SYSTEM: Visualized major vascular flow voids at skull base are patent. OTHER FINDINGS: None. IMPRESSION: Mild generalized volume loss. No evidence of acute intracranial hemorrhage or infarct. Chronic white matter ischemic changes as described above.
--- NOTE | 2017-08-29 22:54 | CP.PCM.HP ---
Past Patient History - Infectious Disease Hx of Infectious Diseases: None - Past Medical History & Family History Past Medical History?: Yes - Past Social History Smoking Status: Never Smoked - CARDIAC Hx Hypercholesterolemia: Yes Hx Hypertension: Yes - PULMONARY Hx Asthma: Yes - NEUROLOGICAL Hx Transient Ischemic Attacks (TIA): Yes - HEENT Hx HEENT Problems: No - RENAL Hx Chronic Kidney Disease: No - ENDOCRINE/METABOLIC Hx Endocrine Disorders: Yes Hx Diabetes Mellitus Type 2: Yes Hx Hypothyroidism: Yes - HEMATOLOGICAL/ONCOLOGICAL Hx AIDS: No Hx Cancer: Yes (Breast) Hx Human Immunodeficiency Virus (HIV): No Other/Comment: left breast mastectomy chemo pills - INTEGUMENTARY Hx Dermatological Problems: No - MUSCULOSKELETAL/RHEUMATOLOGICAL Hx Arthritis: Yes Hx Falls: No Hx Osteoporosis: Yes - GASTROINTESTINAL Hx Pancreatitis: Yes - GENITOURINARY/GYNECOLOGICAL Hx Genitourinary Disorders: No - PSYCHIATRIC Hx Psychophysiologic Disorder: No Hx Substance Use: No - SURGICAL HISTORY Hx Section: Yes Hx Hysterectomy: Yes Hx Mastectomy: Yes Other/Comment: Abdominal surgery for intestinal obstruction. - ANESTHESIA Hx Anesthesia: Yes Hx Anesthesia Reactions: No Hx Malignant Hyperthermia: No Has any member of the family had a problem w/ anesthesia?: No Meds Home Medications: Home Medication List Medication Instructions Recorded Confirmed Type Aspirin [Aspirin Chewable] 81 mg PO DAILY #30 chew 08/29/17 Rx Clopidogrel [Plavix] 75 mg PO DAILY #30 tab 08/29/17 Rx Allergies/Adverse Reactions: Allergies Allergy/AdvReac Type Severity Reaction Status Date / Time iodine AdvReac ANAPHYLAXIS Verified 08/28/17 02:24 shellfish derived AdvReac ANAPHYLAXIS Verified 08/28/17 02:24 sulfacetamide AdvReac ANAPHYLAXIS Verified 08/28/17 02:24 [From Sulfamide] Results - Vital Signs Recent Vital Signs: Last Vital Signs Temp 97.9 F 08/29/17 20:15 Pulse 96 H 08/29/17 21:00 Resp 20 08/29/17 20:15 BP 119/67 08/29/17 20:15 Pulse Ox 97 08/29/17 20:15 - Labs Result Diagrams: 08/28/17 08:35 08/28/17 08:35 Labs: Laboratory Results - last 24 hr 08/29/17 08/29/17 08/29/17 05:09 11:06 16:05 POC Glucose (mg/dL) 142 H 163 H 181 H 08/29/17 21:43 POC Glucose (mg/dL) 144 H
--- NOTE | 2017-08-30 04:47 | CP.PCM.PN ---
Subjective - Date & Time of Evaluation Date of Evaluation: 08/29/17 Time of Evaluation: 12:25 Objective - Vital Signs/Intake and Output Vital Signs (last 24 hours): Temp Pulse Resp BP Pulse Ox 98.3 F 71 18 106/62 99 08/29/17 23:52 08/29/17 23:52 08/29/17 23:52 08/29/17 23:52 08/29/17 23:52 Intake and Output: 08/29/17 08/30/17 18:59 06:59 Intake Total 1200 Balance 1200 - Medications Medications: Current Medications Acetaminophen (Tylenol 325mg Tab) 650 mg PO Q6 PRN PRN Reason: Headache Aspirin (Aspirin Chewable) 81 mg PO DAILY [facility] Atorvastatin Calcium (Lipitor) 20 mg PO HS [facility] Last Admin: 08/29/17 21:15 Dose: 20 mg Clopidogrel Bisulfate (Plavix) 75 mg PO DAILY [facility] Last Admin: 08/29/17 13:03 Dose: 75 mg Enoxaparin Sodium (Lovenox) 40 mg SC DAILY [facility] PRN Reason: Protocol Last Admin: 08/29/17 08:59 Dose: 40 mg Levothyroxine Sodium (Synthroid) 50 mcg PO DAILY@0630 [facility] Last Admin: 08/29/17 06:58 Dose: 50 mcg Lisinopril (Zestril) 2.5 mg PO DAILY [facility] Last Admin: 08/29/17 09:02 Dose: 2.5 mg Metformin HCl (Glucophage) 500 mg PO BID [facility] Last Admin: 08/29/17 17:22 Dose: 500 mg Pantoprazole Sodium (Protonix Ec Tab) 40 mg PO DAILY [facility] Last Admin: 08/29/17 09:02 Dose: 40 mg - Labs Labs: 08/28/17 08:35 08/28/17 08:35
[2017-08-30] MEDS: Levothyroxine 50 MCG TAB PO SCH (06:01)
[2017-08-30 08:07] VITALS: O2SAT 97
[2017-08-30] MEDS: Enoxaparin 40 mg Syringe SC SCH (08:26)
[2017-08-30] MEDS: Pantoprazole 40 mg EC Tab PO SCH (08:27)
--- NOTE | 2017-08-30 09:53 | CP.PCM.PN ---
Subjective - Date & Time of Evaluation Date of Evaluation: 08/30/17 Time of Evaluation: 09:51 - Subjective Subjective: Ms. Jang was seen and examined at the bedside. She is alert, oriented in all spheres. She denies any headache, dizziness, lightheadedness, nausea, or vomiting. She is able to follow all simple commands. She is able to ambulate within her room in steady gait. There was no untoward events overnight. Objective - Vital Signs/Intake and Output Vital Signs (last 24 hours): Temp Pulse Resp BP Pulse Ox 97.7 F 81 20 104/69 97 08/30/17 08:00 08/30/17 08:00 08/30/17 08:00 08/30/17 08:28 08/30/17 08:00 - Medications Medications: Current Medications Acetaminophen (Tylenol 325mg Tab) 650 mg PO Q6 PRN PRN Reason: Headache Aspirin (Aspirin Chewable) 81 mg PO DAILY [facility] Last Admin: 08/30/17 08:26 Dose: 81 mg Atorvastatin Calcium (Lipitor) 20 mg PO HS [facility] Last Admin: 08/29/17 21:15 Dose: 20 mg Clopidogrel Bisulfate (Plavix) 75 mg PO DAILY [facility] Last Admin: 08/30/17 08:27 Dose: 75 mg Enoxaparin Sodium (Lovenox) 40 mg SC DAILY [facility] PRN Reason: Protocol Last Admin: 08/30/17 08:26 Dose: 40 mg Levothyroxine Sodium (Synthroid) 50 mcg PO DAILY@0630 [facility] Last Admin: 08/30/17 06:01 Dose: 50 mcg Lisinopril (Zestril) 2.5 mg PO DAILY [facility] Last Admin: 08/30/17 08:28 Dose: 2.5 mg Metformin HCl (Glucophage) 500 mg PO BID [facility] Last Admin: 08/30/17 08:26 Dose: 500 mg Pantoprazole Sodium (Protonix Ec Tab) 40 mg PO DAILY [facility] Last Admin: 08/30/17 08:27 Dose: 40 mg - Labs Labs: 08/28/17 08:35 08/28/17 08:35 - Constitutional Appears: No Acute Distress - Head Exam Head Exam: NORMAL INSPECTION - Neurological Exam Neurological Exam: Alert, Awake, Oriented x3 Neuro motor strength exam: Left Upper Extremity: 5, Right Upper Extremity: 5, Left Lower Extremity: 5, Right Lower Extremity: 5 Additional comments: She is alert, oriented x3. Follow all commands.Sensation remains intact. Assessment and Plan (1) TIA (transient ischemic attack) Assessment & Plan: Case discussed with Dr. Damon, continue all current medical, physical, occupational therapies. If the MRA of the head and neck is normal, May discharge to home and follow up with an outpatient neurologist in 2 weeks. If the patient would like to follow up with Dr. Go at [address] [facility]. [address] [place] [address]. Continue dual antiplatelet aspirin 81 mg PO daily and plavix 75 mg PO daily for 21 days then continue plavix 75 mg PO daily as a monotherapy per Chance trial. Status: Acute
--- NOTE | 2017-08-30 10:38 | MRI ---
PROCEDURE: Magnetic Resonance Angiography Brain HISTORY: r/o CVA COMPARISON: None available. TECHNIQUE: 3D time of flight MR angiography of the intracranial arteries was performed. Rotating maximum intensity projection images were generated. FINDINGS: INTERNAL CAROTID ARTERIES: The skull base, petrous, and supraclinoid segments are bilaterally widely patient. Mild atherosclerosis appreciate affecting the cavernous bilateral ICA segments. ANTERIOR CEREBRAL ARTERIES: Unremarkable. A1 and A2 segments are widely patent. Smaller distal branches unremarkable, as visualized. MIDDLE CEREBRAL ARTERIES: Unremarkable. M1 and M2 segments are widely patent. Perisylvian branches grossly symmetric. POSTERIOR CIRCULATION: Basilar Artery: Unremarkable. Distal Vertebral Arteries: Unremarkable. Posterior Cerebral Arteries: Unremarkable. Posterior Inferior Cerebellar Arteries: Unremarkable. ANEURYSM/ VASCULAR MALFORMATIONS: None. OTHER FINDINGS: None. IMPRESSION: Limited bilateral ICA cavernous segment atherosclerosis without significant stenosis resulting. Remainder of the intracranial MR angiogram is otherwise unremarkable. Concordant preliminary report from [facility], 08/29/2017.
--- NOTE | 2017-08-30 10:43 | MRI ---
PROCEDURE: MR Angiography of the neck without contrast HISTORY: r/o CVA COMPARISON: None available. TECHNIQUE: 3D [id number] angiography of the neck was performed. Rotating maximum intensity projection images of the cervical carotid and vertebral arteries were generated. The origins of the common carotid arteries were not visualized, which is a limitation inherent to the non-contrast time of flight technique. FINDINGS: RIGHT CAROTID ARTERIES: Common Carotid Artery: No significant stenosis identified. Carotid Bifurcation: Normal. Internal Carotid Artery:No significant stenosis identified. External Carotid Artery (proximal branches): Normal. LEFT CAROTID ARTERIES: Common Carotid Artery: No significant stenosis identified. Carotid Bifurcation: Normal. Internal Carotid Artery: No significant stenosis identified. External Carotid Artery (proximal branches): Normal. VERTEBRAL ARTERIES: Right Vertebral Artery: No significant stenosis identified. Left Vertebral Artery: No significant stenosis identified. OTHER FINDINGS: None. IMPRESSION: No significant stenosis identified in MR angiography of the neck including bilateral common and internal carotid arteries. Concordant preliminary report from [facility], 08/29/2017.
[2017-08-30 12:07] VITALS: BP 115/60; PULSE 85; RESP 18; TEMP 98.2
== END 2017-08-30 13:45 | disposition home or self-care (01) ==
LOC: H.ER 21:53 → H.ERHOLD 08-28 02:15 → H.TEL 08-28 03:24
PROVIDERS: ADMIT Internal Medicine; ATTEND Internal Medicine
DX: G45.9 Transient cerebral ischemic attack, unspecified (principal); E11.9 Type 2 diabetes mellitus without complications; I10 Essential (primary) hypertension; E03.9 Hypothyroidism, unspecified; E78.00 Pure hypercholesterolemia, unspecified; M81.0 Age-related osteoporosis without current pathological fracture; J45.909 Unspecified asthma, uncomplicated; Z86.73 Personal history of transient ischemic attack (TIA), and cerebral infarction without residual deficits; Z90.12 Acquired absence of left breast and nipple; Z90.710 Acquired absence of both cervix and uterus; Z79.02 Long term (current) use of antithrombotics/antiplatelets; Z79.82 Long term (current) use of aspirin; M19.90 Unspecified osteoarthritis, unspecified site; Z79.84 Long term (current) use of oral hypoglycemic drugs; Z88.2 Allergy status to sulfonamides; Z91.041 Radiographic dye allergy status; Z91.013 Allergy to seafood
CPT/HCPCS: 36415; 70450; 70544; 70547; 70551; 80048; 80061; 82948; 83036; 84443; 84484; 85025; 85027; 92610; 93005; 93306; 93880; 97161; 97165; 99285; G0378; G0480; G8978; G8979; G8980; G8987; G8988; G8989; G8996; G8997; G8998; J1650

== ENCOUNTER 2017-12-13 11:39 | Emergency (ER) | payer MEDICARE, MEDICAID ==
[2017-12-13 11:44] VITALS: BMI 29.2
[2017-12-13] MEDS ORDERED: Sodium Chloride 0.9% 500 ML IV STA (12:58)
--- NOTE | 2017-12-13 13:08 | ED PDOC ---
HPI: Headache Time Seen by Provider: 12/13/17 12:09 Chief Complaint (Nursing): Headache Chief Complaint (Provider): Headache Onset/Duration Of Symptoms: Hrs (x5) Past Medical History Reviewed: Historical Data Vital Signs: Last Vital Signs Temp 98 F 12/13/17 11:42 Pulse 65 12/13/17 11:42 Resp BP 136/64 12/13/17 11:42 Pulse Ox 98 12/13/17 11:42 - Medical History PMH: Arthritis, Asthma, Diabetes, HTN, Hypercholesterolemia, Hypothyroidism, Osteoporosis, Pancreatitis, TIA Denies: HIV, Chronic Kidney Disease - Surgical History Surgical History: - Family History Family History: States: Unknown Family Hx - Home Medications Home Medications: Ambulatory Orders Medication Instructions Recorded Levothyroxine [Synthroid] 50 mcg PO DAILY 07/27/17 Lisinopril [Zestril] 2.5 mg PO DAILY 07/27/17 Pantoprazole Sodium [Protonix] 40 mg PO DAILY PRN 07/27/17 Simvastatin [Zocor] 40 mg PO HS 07/27/17 metFORMIN [glucOPHAGE] 500 mg PO BID 07/27/17 Aspirin [Aspirin Chewable] 81 mg PO DAILY #30 chew 08/29/17 Clopidogrel [Plavix] 75 mg PO DAILY #30 tab 08/29/17 Alprazolam [Xanax] 0.5 mg PO Q12 PRN #30 tab 08/30/17 - Allergies Allergies/Adverse Reactions: Allergies Allergy/AdvReac Type Severity Reaction Status Date / Time iodine AdvReac ANAPHYLAXIS Verified 12/13/17 11:41 shellfish derived AdvReac ANAPHYLAXIS Verified 12/13/17 11:41 sulfacetamide AdvReac ANAPHYLAXIS Verified 12/13/17 11:41 [From Sulfamide] Review of Systems ROS Statement: Except As Marked, All Systems Reviewed And Found Negative Constitutional: Negative for: Fever, Other (injury or trauma) Cardiovascular: Negative for: Chest Pain Respiratory: Negative for: Shortness of Breath, Other (URI) Gastrointestinal: Positive for: Nausea. Negative for: Vomiting Neurological: Positive for: Headache (intermittent light pressure bilaterally to sides of head), Dizziness. Negative for: Other (vertigo) Physical Exam - Reviewed Nursing Documentation Reviewed: Yes Vital Signs Reviewed: Yes - Physical Exam Comments: Otherwise: (-) lightheadedness, (-) trauma, (-) headache, (-) tinnitus, (-) hearing loss, (-) chest pain, (-) dyspnea, (-) fever, (-) vomiting, (-) diarrhea , (-) syncope, (-) GI bleeding. GENERALIZED APPEARANCE:Patient is awake, alert, oriented x3 in no acute distress. SKIN: Warm, dry; (-) cyanosis. HEAD: (-) scalp swelling or tenderness. EYES: (-) conjunctival pallor. ENMT: Mucous membranes dry. NECK: (-) tenderness, (-) stiffness, (-) lymphadenopathy. CHEST AND RESPIRATORY: (-) rales, (-) rhonchi, (-) wheezes; breath sounds equal bilaterally. HEART AND CARDIOVASCULAR: (-) irregularity; (-) murmur, (-) gallop. ABDOMEN AND GI: Soft; (-) distention, (-) tenderness, (-) rebound, (-) guarding , (-) palpable masses, (-) flank tenderness. EXTREMITIES: (-) deformity; (-) edema. Distal pulses: present. NEURO AND PSYCH: Mental status as above. 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 Strength symmetric. Gait: normal. - ECG O2 Sat by Pulse Oximetry: 98 Disposition - Disposition
--- NOTE | 2017-12-13 13:13 | CT ---
PROCEDURE: CT HEAD WITHOUT CONTRAST. HISTORY: headache, h/o stroke COMPARISON: Noncontrast head CT 08/27/2017. TECHNIQUE: Axial computed tomography images were obtained through the head/brain without intravenous contrast. Radiation dose: Total exam DLP = due to glitch, technically unavailable mGy-cm. This CT exam was performed using one or more of the following dose reduction techniques: Automated exposure control, adjustment of the mA and/or kV according to patient size, and/or use of iterative reconstruction technique. FINDINGS: HEMORRHAGE: No intracranial hemorrhage. BRAIN: Normal abbasi-white matter differentiation and density are appreciated throughout the cerebrum and cerebellum with the brainstem appearing unremarkable as well. There is no mass effect. There is no suspicious extra-axial fluid collection and the midline brain anatomy appears diffusely unremarkable. VENTRICLES: Unremarkable. No hydrocephalus. CALVARIUM: Unremarkable. PARANASAL SINUSES: Unremarkable as visualized. No significant inflammatory changes. MASTOID AIR CELLS: Unremarkable as visualized. No inflammatory changes. OTHER FINDINGS: None. IMPRESSION: Unremarkable noncontrast head CT. No definitive interval change greater prior head CT 08/27/2017. . Given clinical history of stroke, follow-up CT or MRI to be considered.
--- NOTE | 2017-12-13 13:50 | ED PDOC ---
HPI: Headache Time Seen by Provider: 12/13/17 12:09 Chief Complaint (Nursing): Headache Chief Complaint (Provider): Headache Onset/Duration Of Symptoms: Hrs (x5) Additional Complaint(s): Patient is a 72 y/o female with history of diabetes and TIA who presents to the ED complaining of dizziness with associated headache, onset earlier today. Patient states that she woke up at 10 am and felt a slight twitching in her right eyelid. She went to her adult day care center where she noticed an intermittent dizziness described as a lightheadedness associated with bilateral pressure to the sides of her head. She also notes of an ear popping sensation like in an airplane. Patient admits to nausea. She denies any symptoms asscoiated with head movement, any injury, trauma, fever, chest pain, SOB, vomiting, diarrhea, syncope, GI bleeding, or vertigo. Past Medical History Reviewed: Historical Data, Nursing Documentation, Vital Signs Vital Signs: Last Vital Signs Temp 98 F 12/13/17 11:42 Pulse 65 12/13/17 11:42 Resp BP 136/64 12/13/17 11:42 Pulse Ox 98 12/13/17 11:42 - Medical History PMH: Arthritis, Asthma, Diabetes, HTN, Hypercholesterolemia, Hypothyroidism, Osteoporosis, Pancreatitis, TIA Denies: HIV, Chronic Kidney Disease - Surgical History Surgical History: - Family History Family History: States: Unknown Family Hx - Home Medications Home Medications: Ambulatory Orders Medication Instructions Recorded Levothyroxine [Synthroid] 50 mcg PO DAILY 07/27/17 Lisinopril [Zestril] 2.5 mg PO DAILY 07/27/17 Pantoprazole Sodium [Protonix] 40 mg PO DAILY PRN 07/27/17 Simvastatin [Zocor] 40 mg PO HS 07/27/17 metFORMIN [glucOPHAGE] 500 mg PO BID 07/27/17 Aspirin [Aspirin Chewable] 81 mg PO DAILY #30 chew 08/29/17 Clopidogrel [Plavix] 75 mg PO DAILY #30 tab 08/29/17 Alprazolam [Xanax] 0.5 mg PO Q12 PRN #30 tab 08/30/17 - Allergies Allergies/Adverse Reactions: Allergies Allergy/AdvReac Type Severity Reaction Status Date / Time iodine AdvReac ANAPHYLAXIS Verified 12/13/17 11:41 shellfish derived AdvReac ANAPHYLAXIS Verified 12/13/17 11:41 sulfacetamide AdvReac ANAPHYLAXIS Verified 12/13/17 11:41 [From Sulfamide] Review of Systems ROS Statement: Except As Marked, All Systems Reviewed And Found Negative Constitutional: Negative for: Fever, Other (injury or trauma) Cardiovascular: Negative for: Chest Pain Respiratory: Negative for: Shortness of Breath Gastrointestinal: Negative for: Vomiting Neurological: Positive for: Headache (bilateral sides of head), Dizziness Physical Exam - Reviewed Nursing Documentation Reviewed: Yes Vital Signs Reviewed: Yes - Physical Exam Comments: GENERALIZED APPEARANCE:Patient is awake, alert, oriented x3 in no acute distress. SKIN: Warm, dry; (-) cyanosis. HEAD: (-) scalp swelling or tenderness. EYES: (-) conjunctival pallor. ENMT: Mucous membranes dry. NECK: (-) tenderness, (-) stiffness, (-) lymphadenopathy. CHEST AND RESPIRATORY: (-) rales, (-) rhonchi, (-) wheezes; breath sounds equal bilaterally. HEART AND CARDIOVASCULAR: (-) irregularity; (-) murmur, (-) gallop. ABDOMEN AND GI: Soft; (-) distention, (-) tenderness, (-) rebound, (-) guarding , (-) palpable masses, (-) flank tenderness. EXTREMITIES: (-) deformity; (-) edema. Distal pulses: present. NEURO AND PSYCH: Mental status as above. 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 Strength symmetric. Gait: normal. - Laboratory Results Result Diagrams: 12/13/17 13:50 12/13/17 13:50 - ECG O2 Sat by Pulse Oximetry: 98 (RA) Pulse Ox Interpretation: Normal Medical Decision Making Medical Decision Making: Time: 12:57 Initial Impression: Dizziness Initial Plan: * CT Head w/o contrast (Time - 12:13) * EKG * CMP * Troponin I * CBC with differential * EDNURTX * CXR - one view * Sodium Chloride 0.9% 500 ml IV 500mls/hr * Urine culture * Urinalysis Patient refusing any medications at this time for nausea or dizziness. States that she feels fine at this time and would rather wait to see the diagnostic results. 13:[address] FINDINGS: HEMORRHAGE: No intracranial hemorrhage. BRAIN: Normal abbasi-white matter differentiation and density are appreciated throughout the cerebrum and cerebellum with the brainstem appearing unremarkable as well. There is no mass effect. There is no suspicious extra-axial fluid collection and the midline brain anatomy appears diffusely unremarkable. VENTRICLES: Unremarkable. No hydrocephalus. CALVARIUM: Unremarkable. PARANASAL SINUSES: Unremarkable as visualized. No significant inflammatory changes. MASTOID AIR CELLS: Unremarkable as visualized. No inflammatory changes. OTHER FINDINGS: None. IMPRESSION: Unremarkable noncontrast head CT. No definitive interval change greater prior head CT 08/27/2017. . Given clinical history of stroke, follow-up CT or MRI to be considered. EKG : NSR at 64 bpm, no acute ST changes, as read by [facility] CXR : NAD, as read by [facility] On re-evaluation, patient reports improvement of symptoms, denies any headache, dizziness, CP or SOB. On exam, patient remains AAOx3, in no acute distress. Eating food, smiling, sitting comfortably. Repeat neuro exam shows no focal findings. VS T 98 P 74 R 16 BP 135/77 O2sat 100%RA. Lab results reviewed : wnl, trop (-). Diagnostic results d/w the patient in great detail. Based on history, exam and diagnostic results, plan will be for outpatient follow up. Patient feels comfortable going home. Patient instructed to follow-up with pmd in 1-2 days without fail. Return to the emergency room at any time for any new or worsening symptoms. Patient states she fully agrees with and understands discharge instructions. States that she agrees with the plan and disposition. Verbalized and repeated discharge instructions and plan. I have given the patient opportunity to ask any additional questions. Scribe Attestation: Documented by Nick Bonilla acting as a scribe for Vicenta Delatorre PA-C., MD Scribe Attestation: All medical record entries made by the Poppy were at my direction and personally dictated by me. I have reviewed the chart and agree that the record accurately reflects my personal performance of the history, physical exam, medical decision making, and the department course for this patient. I have also personally directed, reviewed, and agree with the discharge instructions and disposition. Disposition - Clinical Impression Clinical Impression: Dizziness - Patient ED Disposition Is Patient to be Admitted: No Counseled Patient/Family Regarding: Studies Performed, Diagnosis, Need For Followup - Disposition Disposition: Routine/Home Disposition Time: 15:00 Condition: IMPROVED Additional Instructions: Thank you for letting us take care of you today. You were treated for dizziness. The emergency medical care you received today was directed at your acute symptoms. It may take several days for your symptoms to resolve. Return to the Emergency Department if your symptoms worsen, do not improve, or if you have any other problems. Please contact your doctor in 2 days for re-evaluation and follow up. Bring any paperwork you were given at discharge with you along with any medications you are taking to your follow up visit. Our treatment cannot replace ongoing medical care by a primary care provider (PCP) outside of the emergency department. Thank you for allowing the [facility] team to be part of your care today. 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
[2017-12-13 14:08] LABS: BASO % 0.7 % (0.0-2.0); EOS # 0.3 K/uL (0.0-0.7); EOS % 5.1 % (0.0-4.0); HEMOGLOBIN 11.7 g/dL (12.0-16.0); LYMPH # 1.1 K/uL (1.0-4.3); LYMPH % 18.6 % (20.0-40.0); MEAN CELL VOLUME 87.7 fl (81.0-99.0); MEAN CORPUSCULAR HGB CONC 33.1 g/dL (33.0-37.0); MEAN PLATELET VOLUME 8.3 fl (7.2-11.7); MONO # 0.7 K/uL (0.0-0.8); MONO % 11.4 % (0.0-10.0); NEUT # 3.9 K/uL (1.8-7.0); NEUT % 64.2 % (50.0-75.0); RBC 4.05 Mil/uL (3.80-5.20); RED CELL DISTRIBUTION WIDTH 13.2 % (11.5-14.5); WHITE BLOOD COUNT 6.1 K/uL (4.8-10.8)
[2017-12-13 14:17] LABS: SQUAMOUS EPITHIAL < 1 /hpf (0-5); URINE BILIRUBIN NEGATIVE (NEGATIVE); URINE BLOOD SMALL (NEGATIVE); URINE CLARITY CLEAR (Clear); URINE COLOR YELLOW (YELLOW); URINE GLUCOSE (UA) NEG (Normal); URINE LEUKOCYTE ESTERASE TRACE Leu/uL (Negative); URINE PROTEIN NEGATIVE (NEGATIVE); URINE UROBILINOGEN 0.2-1.0 mg/dL (0.2-1.0)
[2017-12-13 14:18] LABS: BLOOD UREA NITROGEN 18 mg/dl (7-17); GFR AFRICAN-AMERICAN > 60; GFR NON-AFRICAN AMERICAN > 60
[2017-12-13 14:19] LABS: ALB/GLOB RATIO 1.2 (1.0-2.1); ALBUMIN 4.2 g/dL (3.5-5.0); ALT/SGPT 20 U/L (9-52); AST/SGOT 25 U/L (14-36); CALCIUM 9.3 mg/dL (8.4-10.2)
--- NOTE | 2017-12-13 14:46 | RAD ---
PROCEDURE: CHEST RADIOGRAPH, 1 VIEW HISTORY: dizzy COMPARISON: None available. FINDINGS: LUNGS: Mild left apical pleural thickening. There also appears be some minimal scarring right lung base at the level of the hemidiaphragm with some localized tenting of the right hemidiaphragm. PLEURA: No pneumothorax or pleural fluid seen. CARDIOVASCULAR: Normal. OSSEOUS STRUCTURES: No significant abnormalities. VISUALIZED UPPER ABDOMEN: Normal. OTHER FINDINGS: None. IMPRESSION: No acute consolidation. Mild left apical pleural thickening. There also appears be some minimal scarring right lung base at the level of the hemidiaphragm with some localized tenting of the right hemidiaphragm.
--- NOTE | 2017-12-13 15:08 | CARD ---
APPROVED REPORT EKG Measurement Heart [id number] <Conclusion> Normal sinus rhythm Normal ECG
[2017-12-13 16:21] VITALS: BP 135/77; PULSE 74; RESP 16; TEMP 98
[2017-12-13 17:33] VITALS: O2SAT 98
== END 2017-12-13 18:47 | disposition home or self-care (01) ==
LOC: H.ER 11:39
DX: R42 Dizziness and giddiness (principal); E03.9 Hypothyroidism, unspecified; E11.9 Type 2 diabetes mellitus without complications; E78.00 Pure hypercholesterolemia, unspecified; I10 Essential (primary) hypertension; Z79.82 Long term (current) use of aspirin; Z79.84 Long term (current) use of oral hypoglycemic drugs; Z86.73 Personal history of transient ischemic attack (TIA), and cerebral infarction without residual deficits
CPT/HCPCS: 70450; 71045; 80053; 81003; 82948; 84484; 85025; 87086; 93005; 96360; 99285; J7030

== ENCOUNTER 2018-05-26 12:58 | Observation (INO) | payer MEDICARE, MEDICAID ==
[2018-05-26 12:58] VITALS: BMI 29.2
[2018-05-26 14:00] LABS: INR 1.1; PROTHROMBIN TIME 12.2 Seconds (9.8-13.1)
[2018-05-26 14:03] LABS: PARTIAL THROMBOPLASTIN TIME 29.4 Seconds (25.6-37.1)
[2018-05-26 14:07] LABS: BASO % 0.7 % (0.0-2.0); EOS # 0.2 K/uL (0.0-0.7); EOS % 3.5 % (0.0-4.0); HEMOGLOBIN 11.4 g/dL (12.0-16.0); LYMPH # 1.1 K/uL (1.0-4.3); LYMPH % 19.7 % (20.0-40.0); MEAN CELL VOLUME 89.7 fl (81.0-99.0); MEAN CORPUSCULAR HEMOGLOBIN 29.6 pg (27.0-31.0); MEAN PLATELET VOLUME 8.4 fl (7.2-11.7); MONO # 0.6 K/uL (0.0-0.8); MONO % 10.8 % (0.0-10.0); NEUT # 3.7 K/uL (1.8-7.0); NEUT % 65.3 % (50.0-75.0); NRBC % 0.1 % (0.0-0.0); RBC 3.86 Mil/uL (3.80-5.20); RED CELL DISTRIBUTION WIDTH 13.4 % (11.5-14.5); WHITE BLOOD COUNT 5.7 K/uL (4.8-10.8)
[2018-05-26 14:08] LABS: BLOOD UREA NITROGEN 19 mg/dl (7-17); CALCIUM 9.2 mg/dL (8.4-10.2); GFR NON-AFRICAN AMERICAN > 60
--- NOTE | 2018-05-26 14:39 | ED PDOC ---
HPI: Altered Mental Status Time Seen by Provider: 05/26/18 13:08 Chief Complaint (Nursing): Weakness/Neurological Deficit Chief Complaint (Provider): Headache History Per: Patient History/Exam Limitations: None Onset/Duration Of Symptoms: Days Current Symptoms Are (Timing): Better Associated Symptoms: denies: Chest Pain, Syncope Additional Complaint(s): 72 y/o female with a PMHx of HTN, Diabetes and TIA presents to the ED for a headache, onset one week ago. Patient describes headache as "pressure" like and gradually decreasing over time since onset. Patient states pressure like headache is still present. Patient reports right-sided jaw numbness. Patient cannot recall exact time facial numbness began. Patient additionally states headache is not the worst headache in her life. Denies chest pain, syncope, dizziness, problems with gait, weakness or numbness with extremities. PMD: Dr. Dyson (Clinic) Past Medical History Reviewed: Historical Data, Nursing Documentation, Vital Signs Vital Signs: Last Vital Signs Temp 98.4 F 05/26/18 13:01 Pulse 81 05/26/18 13:01 Resp 18 05/26/18 13:01 BP 144/61 05/26/18 13:01 Pulse Ox 99 05/26/18 13:01 - Medical History PMH: Arthritis, Asthma, Diabetes, HTN, Hypercholesterolemia, Hypothyroidism, Osteoporosis, Pancreatitis, TIA Denies: HIV, Chronic Kidney Disease - Surgical History Surgical History: - Family History Family History: States: Unknown Family Hx - Home Medications Home Medications: Ambulatory Orders Medication Instructions Recorded Levothyroxine [Synthroid] 50 mcg PO DAILY 07/27/17 Lisinopril [Zestril] 2.5 mg PO DAILY 07/27/17 Pantoprazole Sodium [Protonix] 40 mg PO DAILY PRN 07/27/17 Simvastatin [Zocor] 40 mg PO HS 07/27/17 metFORMIN [glucOPHAGE] 500 mg PO BID 07/27/17 Aspirin [Aspirin Chewable] 81 mg PO DAILY #30 chew 08/29/17 Clopidogrel [Plavix] 75 mg PO DAILY #30 tab 08/29/17 Alprazolam [Xanax] 0.5 mg PO Q12 PRN #30 tab 08/30/17 - Allergies Allergies/Adverse Reactions: Allergies Allergy/AdvReac Type Severity Reaction Status Date / Time iodine AdvReac ANAPHYLAXIS Verified 12/13/17 11:41 shellfish derived AdvReac ANAPHYLAXIS Verified 12/13/17 11:41 sulfacetamide AdvReac ANAPHYLAXIS Verified 12/13/17 11:41 [From Sulfamide] seafood Allergy ANAPHYLAXIS Uncoded 05/26/18 13:00 Review of Systems ROS Statement: Except As Marked, All Systems Reviewed And Found Negative Cardiovascular: Negative for: Chest Pain Neurological: Positive for: Numbness. Negative for: Dizziness Physical Exam - Reviewed Nursing Documentation Reviewed: Yes Vital Signs Reviewed: Yes - Physical Exam Appears: Positive for: Well, No Acute Distress Head Exam: Positive for: ATRAUMATIC, NORMOCEPHALIC Skin: Positive for: Normal Color, Warm, Dry Eye Exam: Positive for: Normal appearance, EOMI, PERRL ENT: Positive for: Normal ENT Inspection Neck: Positive for: Normal Cardiovascular/Chest: Positive for: Regular Rate, Rhythm. Negative for: Murmur Respiratory: Positive for: Normal Breath Sounds. Negative for: Respiratory Distress Gastrointestinal/Abdominal: Positive for: Normal Exam Back: Positive for: Normal Inspection Extremity: Positive for: Normal ROM Neurologic/Psych: Positive for: Alert, Oriented - Laboratory Results Result Diagrams: 05/26/18 13:46 05/26/18 13:46 - ECG O2 Sat by Pulse Oximetry: 99 (RA) Pulse Ox Interpretation: Normal Disposition - Disposition
--- NOTE | 2018-05-26 14:57 | ED PDOC ---
HPI: Headache Time Seen by Provider: 05/26/18 13:08 Chief Complaint (Nursing): Weakness/Neurological Deficit Chief Complaint (Provider): Headache History Per: Patient History/Exam Limitations: no limitations Onset/Duration Of Symptoms: Days (x7) Current Symptoms Are (Timing): Still Present Quality: Pressure Associated Symptoms: denies: Extremity Weakness Additional Complaint(s): 72 y/o female with a PMHx of HTN, Diabetes and TIA presents to the ED for a headache, onset one week ago. Patient describes headache as "pressure" like and gradually decreasing over time since onset. Patient states pressure like headache is still present. Patient reports right-sided jaw numbness. Patient cannot recall exact time facial numbness began. Patient additionally states headache is not the worst headache in her life. Denies chest pain, syncope, dizziness, problems with gait, weakness or numbness with extremities. PMD: Dr. Dyson (Clinic) NIHSS Stroke Scale - Date/Time Evaluation Performed Date Performed: 05/26/18 Time Performed: 13:08 - How Severe is the Stroke Level of Consciousness: 0=Alert LOC to Questions: 0=Both comments correct LOC to commands: 0=Obeys both correctly Best Gaze: 0=Normal Visual: 0=No visual loss Facial: 0=Normal Motor Arm - Left: 0=No drift Motor Arm - Right: 0=No drift Motor Leg - Left: 0=No drift Motor Leg - Right: 0=No drift Limb Ataxia: 0=Absent Sensory: 0=Normal Best Language: 0=No aphasia Dysarthia: 0=Normal articulation Extinction & Inattention (Neglect): 0=Normal, no object Score: 0 Past Medical History Reviewed: Historical Data, Nursing Documentation, Vital Signs Vital Signs: Last Vital Signs Temp 98.4 F 05/26/18 13:01 Pulse 81 05/26/18 13:01 Resp 18 05/26/18 13:01 BP 144/61 05/26/18 13:01 Pulse Ox 99 05/26/18 14:54 - Medical History PMH: Arthritis, Asthma, Diabetes, HTN, Hypercholesterolemia, Hypothyroidism, Osteoporosis, Pancreatitis, TIA Denies: HIV, Chronic Kidney Disease Other PMH: Breast CA - Surgical History Surgical History: Other surgeries: Left Breast Mastectomy - Family History Family History: States: Unknown Family Hx - Home Medications Home Medications: Ambulatory Orders Medication Instructions Recorded Levothyroxine [Synthroid] 50 mcg PO DAILY 07/27/17 Lisinopril [Zestril] 2.5 mg PO DAILY 07/27/17 Pantoprazole Sodium [Protonix] 40 mg PO DAILY PRN 07/27/17 Simvastatin [Zocor] 40 mg PO HS 07/27/17 metFORMIN [glucOPHAGE] 500 mg PO BID 07/27/17 Aspirin [Aspirin Chewable] 81 mg PO DAILY #30 chew 08/29/17 Clopidogrel [Plavix] 75 mg PO DAILY #30 tab 08/29/17 Alprazolam [Xanax] 0.5 mg PO Q12 PRN #30 tab 08/30/17 - Allergies Allergies/Adverse Reactions: Allergies Allergy/AdvReac Type Severity Reaction Status Date / Time iodine AdvReac ANAPHYLAXIS Verified 12/13/17 11:41 shellfish derived AdvReac ANAPHYLAXIS Verified 12/13/17 11:41 sulfacetamide AdvReac ANAPHYLAXIS Verified 12/13/17 11:41 [From Sulfamide] seafood Allergy ANAPHYLAXIS Uncoded 05/26/18 13:00 Review of Systems ROS Statement: Except As Marked, All Systems Reviewed And Found Negative Cardiovascular: Negative for: Chest Pain Neurological: Positive for: Numbness (to the right jaw. No Numbness in the extremities), Headache. Negative for: Weakness, Dizziness, Other (syncope, problems with gait) Physical Exam - Reviewed Nursing Documentation Reviewed: Yes Vital Signs Reviewed: Yes - Physical Exam Appears: Positive for: Non-toxic, No Acute Distress Head Exam: Positive for: ATRAUMATIC, NORMOCEPHALIC Skin: Positive for: Normal Color, Warm, Dry Eye Exam: Positive for: Normal appearance, EOMI, PERRL Neck: Positive for: Normal, Painless ROM, Supple Cardiovascular/Chest: Positive for: Regular Rate, Rhythm. Negative for: Murmur Respiratory: Positive for: Normal Breath Sounds. Negative for: Respiratory Distress Gastrointestinal/Abdominal: Positive for: Normal Exam, Soft. Negative for: Tenderness Extremity: Positive for: Normal ROM. Negative for: Pedal Edema, Deformity Neurologic/Psych: Positive for: Alert, deputy chief sheriff II-XII, Oriented (x3), Cerebellar Tests (Normal), Gait (Steady). Negative for: Motor/Sensory Deficits - Laboratory Results Result Diagrams: 05/26/18 13:46 05/26/18 13:46 - ECG O2 Sat by Pulse Oximetry: 99 (RA) Pulse Ox Interpretation: Normal Medical Decision Making Medical Decision Making: Time: 1342 Impression: Headache and facial paresthesia Differentials include but not limited to TIA, peripheral neuropathy, migraines and CVA Plan: -- CT Head w/o Contrast -- EKG -- BMP -- Troponin I -- CBC with Differentials -- ESR -- PTT -- Prothrombin Time -- Glucose, POC 15:[address] FINDINGS: HEMORRHAGE: No intracranial hemorrhage. BRAIN: No mass effect or edema. No atrophy or chronic microvascular ischemic changes. VENTRICLES: Unremarkable. No hydrocephalus. CALVARIUM: Unremarkable. PARANASAL SINUSES: Unremarkable as visualized. No significant inflammatory changes. MASTOID AIR CELLS: Unremarkable as visualized. No inflammatory changes. OTHER FINDINGS: None. IMPRESSION: Normal CT of the Head. [address] Damon who recommends MRI brain and observation on tele. Scribe Attestation: Documented by Roly Guzman, acting as a scribe for Trent You MD. Provider Scribe Attestation: All medical record entries made by the Scribe were at my direction and personally dictated by me. I have reviewed the chart and agree that the record accurately reflects my personal performance of the history, physical exam, medical decision making, and the department course for this patient. I have also personally directed, reviewed, and agree with the discharge instructions and disposition. Disposition - Clinical Impression Clinical Impression: TIA (transient ischemic attack) - Patient ED Disposition Is Patient to be Admitted: Yes Discussed With : Niraj Rodriguez Doctor Will See Patient In The: Hospital - Disposition Disposition Time: 17:30 Condition: FAIR - Pt Status Changed To: Hospital Disposition Of: Observation - POA Present On Arrival: None rTPA Inclusion/Exclusion - Refusal of Treatment Patient Refused Treatment: No - Inclusion Criteria for Altepase Patient is 18 years or Older: Yes Clinical DX Ischemic Stroke Cause Neurological Deficit: No Time of Onset Established Less Than 270 Mins Before TX Begin: No Risk/Benefit Discussed With Patient/Family Member Present: No
--- NOTE | 2018-05-26 15:07 | CT ---
Date of service: 05/26/2018 PROCEDURE: CT HEAD WITHOUT CONTRAST. HISTORY: facial numbness COMPARISON: None available. TECHNIQUE: Axial computed tomography images were obtained through the head/brain without intravenous contrast. Radiation dose: Total exam DLP = 724.2 mGy-cm. This CT exam was performed using one or more of the following dose reduction techniques: Automated exposure control, adjustment of the mA and/or kV according to patient size, and/or use of iterative reconstruction technique. FINDINGS: HEMORRHAGE: No intracranial hemorrhage. BRAIN: No mass effect or edema. No atrophy or chronic microvascular ischemic changes. VENTRICLES: Unremarkable. No hydrocephalus. CALVARIUM: Unremarkable. PARANASAL SINUSES: Unremarkable as visualized. No significant inflammatory changes. MASTOID AIR CELLS: Unremarkable as visualized. No inflammatory changes. OTHER FINDINGS: None. IMPRESSION: Normal CT of the Head.
[2018-05-26] MEDS ORDERED: Pantoprazole 40 mg EC Tab PO PRN (18:16)
--- NOTE | 2018-05-26 18:44 | CP.PCM.HP ---
<Sultan Dena - Last Filed: 05/26/18 19:34> History of Present Illness - History of Present Illness History of Present Illness: CC: Headache x 1 week, right sided jaw numbness since this morning. HPI: 72 year old female with PMHx of HTN, DMII, TIA, left breast CA s/p left mastectomy in 1989 presented to [facility] ER with complaints of right sided jaw numbness since this morning associated with intermittent frontal and occipital headche x 1 week. Patient reports she woke up this morning with feeling numbness on her right sided jaw. Last felt normal was last night before she went to bed. Patient reports rizwan is impriving but still has residual numbness. Patient reports her SBP ranges in 140's to 150's for last 1 week despite taking Lisinopril. Denies any focal weakness, speech difficulty, swallowing difficulty, blurry vision, nausea, vomiting, chest pain or dyspnea. Patient had similar symptoms in 08/2017 and has been taking Aspirin and Plavix since then. Patient did not follow up with neurologist and has been getting DAPT from her PMD. ROS: all 12 systems reviewed and negative except as mentioned in HPI. PMHx: TIA, DM 2, HTN, Hyperlipidemia, Breast cancer(1989). PSHx: Left Mastectomy: 1989, hysterectomy 1991, ?partial colon resection due to SBO. Social hx: denies smoking cigarettes, drinking EtOH or using illicit drugs Family hx: Mother, Father and Son: DMII. Denies any hx of stroke or CAD. Allergy: Ioddine: Contrast for CT scan caused her to have severe allergic reaction. Shellfish, Sulfa, Bactrim Medications: Levothyroxine 50 mcg PO DAILY, Lisinopril 2.5 mg PO DAILY, Pantoprazole 40 mg PO DAILY PRN, Simvastatin 40 mg PO HS ,MetFORMIN 500 mg PO BID, Aspirin 81 mg PO DAILY, Clopidogrel 75 mg PO DAILY PMD: Dr. Dyson personnel training officer: Tamiko (friend) [phone] Code status: full code Present on Admission - Present on Admission Any Indicators Present on Admission: No Review of Systems - Review of Systems Review of Systems: All 12 systems reviewed and negative except as mentioned in HPI Past Patient History - Infectious Disease Hx of Infectious Diseases: None - Past Medical History & Family History Past Medical History?: Yes - Past Social History Smoking Status: Never Smoked - CARDIAC Hx Hypercholesterolemia: Yes Hx Hypertension: Yes - PULMONARY Hx Asthma: Yes - NEUROLOGICAL Hx Transient Ischemic Attacks (TIA): Yes - HEENT Hx HEENT Problems: No - RENAL Hx Chronic Kidney Disease: No - ENDOCRINE/METABOLIC Hx Hypothyroidism: Yes - HEMATOLOGICAL/ONCOLOGICAL Hx Human Immunodeficiency Virus (HIV): No - INTEGUMENTARY Hx Dermatological Problems: No - MUSCULOSKELETAL/RHEUMATOLOGICAL Hx Arthritis: Yes Hx Osteoporosis: Yes - GASTROINTESTINAL Hx Pancreatitis: Yes - GENITOURINARY/GYNECOLOGICAL Hx Genitourinary Disorders: No - PSYCHIATRIC Hx Psychophysiologic Disorder: No Hx Substance Use: No - SURGICAL HISTORY Hx Section: Yes Hx Hysterectomy: Yes Hx Mastectomy: Yes Other/Comment: Abdominal surgery for intestinal obstruction. - ANESTHESIA Hx Anesthesia: Yes Hx Anesthesia Reactions: No Hx Malignant Hyperthermia: No Meds Allergies/Adverse Reactions: Allergies Allergy/AdvReac Type Severity Reaction Status Date / Time iodine AdvReac ANAPHYLAXIS Verified 12/13/17 11:41 shellfish derived AdvReac ANAPHYLAXIS Verified 12/13/17 11:41 sulfacetamide AdvReac ANAPHYLAXIS Verified 12/13/17 11:41 [From Sulfamide] seafood Allergy ANAPHYLAXIS Uncoded 05/26/18 13:00 Physical Exam - Constitutional Appears: Non-toxic, No Acute Distress - Head Exam Head Exam: ATRAUMATIC, NORMAL INSPECTION, NORMOCEPHALIC - Eye Exam Eye Exam: EOMI, Normal appearance, PERRL. absent: Scleral icterus - ENT Exam ENT Exam: Mucous Membranes Moist, Normal Oropharynx - Neck Exam Neck exam: Positive for: Full Rom, Normal Inspection - Respiratory Exam Respiratory Exam: Clear to Auscultation Bilateral. absent: Rhonchi, Wheezes - Cardiovascular Exam Cardiovascular Exam: REGULAR RHYTHM, RRR, +S1, +S2 - GI/Abdominal Exam GI & Abdominal Exam: Normal Bowel Sounds, Soft. absent: Tenderness - Extremities Exam Extremities exam: Positive for: normal capillary refill, normal inspection. Negative for: calf tenderness, pedal edema - Neurological Exam Neurological exam: Alert, CN II-XII Intact, Oriented x3, Reflexes Normal Additional comments: Normal speech Sensation intact and systems administration analyst strength 5/5. B/L upper and lower extremities strength 5/5 Cerebellar test WNL DTR 2+ b/l. - Psychiatric Exam Psychiatric exam: Normal Affect, Normal Mood - Skin Skin Exam: Normal Color, Warm Results - Vital Signs Recent Vital Signs: Last Vital Signs Temp 98.1 F 05/26/18 18:13 Pulse 66 05/26/18 18:13 Resp 18 05/26/18 18:13 BP 125/58 L 05/26/18 18:13 Pulse Ox 100 05/26/18 18:13 - Labs Result Diagrams: 05/26/18 13:46 05/26/18 13:46 Labs: Laboratory Results - last 24 hr 05/26/18 05/26/18 05/26/18 13:24 13:46 13:46 WBC 5.7 RBC 3.86 Hgb 11.4 L Hct 34.7 MCV 89.7 D MCH 29.6 MCHC 33.0 RDW 13.4 Plt Count 235 MPV 8.4 Neut % (Auto) 65.3 Lymph % (Auto) 19.7 L [place] % (Auto) 10.8 H Eos % (Auto) 3.5 Baso % (Auto) 0.7 Neut # (Auto) 3.7 Lymph # (Auto) 1.1 [place] # (Auto) 0.6 Eos # (Auto) 0.2 Baso # (Auto) 0.0 ESR 24 PT INR APTT Sodium 139 Potassium 4.2 Chloride 102 Carbon Dioxide 25 Anion Gap 16 BUN 19 H Creatinine 0.6 L Est GFR ( Amer) > 60 Est GFR (Non-Af Amer) > 60 POC Glucose (mg/dL) 133 H Random Glucose 139 H Calcium 9.2 Troponin I < 0.0120 05/26/18 13:46 WBC RBC Hgb Hct MCV MCH MCHC RDW Plt Count MPV Neut % (Auto) Lymph % (Auto) [place] % (Auto) Eos % (Auto) Baso % (Auto) Neut # (Auto) Lymph # (Auto) [place] # (Auto) Eos # (Auto) Baso # (Auto) ESR PT 12.2 INR 1.1 APTT 29.4 Sodium Potassium Chloride Carbon Dioxide Anion Gap BUN Creatinine Est GFR ( Amer) Est GFR (Non-Af Amer) POC Glucose (mg/dL) Random Glucose Calcium Troponin I - Imaging and Cardiology CT scan - head Additional comment: Head CT FINDINGS: HEMORRHAGE: No intracranial hemorrhage. BRAIN: No mass effect or edema. No atrophy or chronic microvascular ischemic changes. VENTRICLES: Unremarkable. No hydrocephalus. CALVARIUM: Unremarkable. PARANASAL SINUSES: Unremarkable as visualized. No significant inflammatory changes. MASTOID AIR CELLS: Unremarkable as visualized. No inflammatory changes. OTHER FINDINGS: None. IMPRESSION: Normal CT of the Head. Assessment & Plan - Assessment and Plan (Free Text) Assessment: 72 year old female with PMHx of HTN, DMII, TIA, left breast CA s/p left mastectomy in 1989 presented to [facility] ER with complaints of right sided jaw numbness since this morning associated with intermittent frontal and occipital headche x [address] was unremarkable. Patient is admitted for TIA. Right sided jaw numbness w/ intermittent headache -Admit to telemetry -Head CT: normal head CT -S/p aspirin 325 mg po stat in ER -Neck MRA on 08/29/17: No significant stenosis identified including B/L common and internal carotid arteries. -Head MRA on 08/30/17: Impression: Limited B/L ICA cavernous segment atherosclerosis w/o significant stenosis resulting. Remainder of the intracranial MRA in otherwise unremarkable. -MRI w/o contrast ordered -Neurology consulted -c/w asprin and plavix -f/u AM labs Hypertension -Controlled -c/w Lisinopril 2.5 daily DM2 -A1 C 7.8 on 08/2017 -c/w Metformin 500 mg BID HLD -Lipid panel on 08/2014: Total chol 130, trigly 91, LDL 50, HDL 45 -c/w Atrovastatin 20 mg DVT prophylaxis - Lovenox 40 mg sc qd Code Status -Full code plan d/w Dr. Michael Fernandes, [id number] <Niraj Rodriguez D - Last Filed: 05/26/18 19:55> Results - Vital Signs Recent Vital Signs: Last Vital Signs Temp 98.1 F 05/26/18 18:13 Pulse 66 05/26/18 18:13 Resp 18 05/26/18 18:13 BP 125/58 L 05/26/18 18:13 Pulse Ox 100 05/26/18 18:13 - Labs Result Diagrams: 05/26/18 13:46 05/26/18 13:46 Labs: Laboratory Results - last 24 hr 05/26/18 05/26/18 05/26/18 13:24 13:46 13:46 WBC 5.7 RBC 3.86 Hgb 11.4 L Hct 34.7 MCV 89.7 D MCH 29.6 MCHC 33.0 RDW 13.4 Plt Count 235 MPV 8.4 Neut % (Auto) 65.3 Lymph % (Auto) 19.7 L [place] % (Auto) 10.8 H Eos % (Auto) 3.5 Baso % (Auto) 0.7 Neut # (Auto) 3.7 Lymph # (Auto) 1.1 [place] # (Auto) 0.6 Eos # (Auto) 0.2 Baso # (Auto) 0.0 ESR 24 PT INR APTT Sodium 139 Potassium 4.2 Chloride 102 Carbon Dioxide 25 Anion Gap 16 BUN 19 H Creatinine 0.6 L Est GFR ( Amer) > 60 Est GFR (Non-Af Amer) > 60 POC Glucose (mg/dL) 133 H Random Glucose 139 H Calcium 9.2 Troponin I < 0.0120 05/26/18 13:46 WBC RBC Hgb Hct MCV MCH MCHC RDW Plt Count MPV Neut % (Auto) Lymph % (Auto) [place] % (Auto) Eos % (Auto) Baso % (Auto) Neut # (Auto) Lymph # (Auto) [place] # (Auto) Eos # (Auto) Baso # (Auto) ESR PT 12.2 INR 1.1 APTT 29.4 Sodium Potassium Chloride Carbon Dioxide Anion Gap BUN Creatinine Est GFR ( Amer) Est GFR (Non-Af Amer) POC Glucose (mg/dL) Random Glucose Calcium Troponin I Attending/Attestation - Attestation I have personally seen and examined this patient.: Yes I have fully participated in the care of the patient.: Yes I have reviewed all pertinent clinical information: Yes Notes (Text): 05/26/18 19:53 Patient seen and examined with resident. Case discussed and agreed with assessment and plan.
[2018-05-27 05:57] LABS: BASO % 0.5 % (0.0-2.0); EOS # 0.3 K/uL (0.0-0.7); HEMOGLOBIN 11.7 g/dL (12.0-16.0); LYMPH # 1.4 K/uL (1.0-4.3); LYMPH % 20.7 % (20.0-40.0); MEAN CELL VOLUME 89.6 fl (81.0-99.0); MEAN CORPUSCULAR HEMOGLOBIN 29.8 pg (27.0-31.0); MEAN CORPUSCULAR HGB CONC 33.2 g/dL (33.0-37.0); MEAN PLATELET VOLUME 8.4 fl (7.2-11.7); MONO # 0.7 K/uL (0.0-0.8); MONO % 9.8 % (0.0-10.0); NEUT # 4.4 K/uL (1.8-7.0); NRBC % 0.1 % (0.0-0.0); RBC 3.92 Mil/uL (3.80-5.20); WHITE BLOOD COUNT 6.8 K/uL (4.8-10.8)
[2018-05-27 06:05] LABS: BLOOD UREA NITROGEN 21 mg/dl (7-17); CALCIUM 9.2 mg/dL (8.4-10.2); GFR NON-AFRICAN AMERICAN > 60
[2018-05-27] MEDS ORDERED: Levothyroxine 50 MCG TAB PO SCH (06:30)
--- NOTE | 2018-05-27 06:49 | CP.PCM.PN ---
Subjective - Date & Time of Evaluation Date of Evaluation: 05/27/18 Time of Evaluation: 06:49 - Subjective Subjective: Pt seen and examined at bedside. Denies jaw numbness. Tolerating PO diet. Denies CP/SOB/N/V. Ambulates without difficulty. Denies acute neurologic deficits Pt pending brain MRI and Neuro eval. Objective - Vital Signs/Intake and Output Vital Signs (last 24 hours): Temp Pulse Resp BP Pulse Ox 97.9 F 87 19 119/67 97 05/27/18 04:51 05/27/18 04:51 05/27/18 04:51 05/27/18 04:51 05/27/18 04:51 - Medications Medications: Current Medications Acetaminophen (Tylenol 325mg Tab) 650 mg PO Q6 PRN PRN Reason: Headache Aspirin (Aspirin Chewable) 81 mg PO DAILY [facility] Atorvastatin Calcium (Lipitor) 40 mg PO HS [facility] Last Admin: 05/26/18 22:21 Dose: 40 mg Clopidogrel Bisulfate (Plavix) 75 mg PO DAILY [facility] Docusate Sodium (Colace) 100 mg PO BID PRN PRN Reason: Constipation Enoxaparin Sodium (Lovenox) 40 mg SC DAILY [facility]; Protocol Levothyroxine Sodium (Synthroid) 50 mcg PO DAILY@0630 [facility] Lisinopril (Zestril) 2.5 mg PO DAILY [facility] Metformin HCl (Glucophage) 500 mg PO Q12 [facility] Last Admin: 05/26/18 22:21 Dose: 500 mg Pantoprazole Sodium (Protonix Ec Tab) 40 mg PO DAILY PRN PRN Reason: Heartburn - Labs Labs: 05/27/18 04:25 05/27/18 04:25 PT 12.2 Seconds (9.8-13.1) 05/26/18 13:46 INR 1.1 05/26/18 13:46 APTT 29.4 Seconds (25.6-37.1) 05/26/18 13:46
[2018-05-27 08:20] VITALS: RESP 20; O2SAT 98
[2018-05-27] MEDS ORDERED: Enoxaparin 40 mg Syringe SC SCH (09:00)
[2018-05-27 11:35] VITALS: BP 115/63; PULSE 71
--- NOTE | 2018-05-27 11:37 | CARD ---
APPROVED REPORT Date of service: 05/26/2018 EKG Measurement Heart [id number] <Conclusion> Normal sinus rhythm Normal ECG
[2018-05-27 12:48] VITALS: TEMP 98.1
--- NOTE | 2018-05-27 12:56 | MRI ---
Date of service: 05/27/2018 PROCEDURE: MRI BRAIN WITHOUT CONTRAST HISTORY: TIA COMPARISON: CT head without contrast from 05/26/2018. TECHNIQUE: Multiplanar, multisequence MR images of the brain were obtained without intravenous contrast enhancement. FINDINGS: HEMORRHAGE: None DWI: No evidence of an acute or early subacute infarction. BRAIN PARENCHYMA: There are moderate chronic microangiopathic changes. There is no mass, mass effect or abnormal extra-axial fluid collection. There is no territorial infarction. The midline sagittal structures are normal. VENTRICLES: There is mild age-related global parenchymal volume loss and proportionate enlargement of the ventricles and cortical sulci. CRANIUM: There is normal bone marrow signal pattern. ORBITS: Grossly unremarkable. PARANASAL SINUSES/MASTOIDS: Predominantly clear P VASCULAR SYSTEM: There are normal signal voids in the larger intracranial arteries. OTHER FINDINGS: None. IMPRESSION: No acute intracranial abnormality. Specifically, no evidence for acute infarction. Moderate chronic microangiopathic changes and mild age-related global parenchymal volume loss.
[2018-05-27 13:15] LABS: HDL CHOLESTEROL 40 MG/DL (30-70)
[2018-05-27 13:26] LABS: LDL CHOLESTEROL 66 mg/dL (0-129)
--- NOTE | 2018-05-27 14:41 | CP.PCM.DIS ---
<Cirilo Padron - Last Filed: 05/27/18 15:29> Provider - Provider Date of Admission: 05/26/18 17:50 Attending physician: Niraj Rodriguez MD Consults: 05/26/18 18:21 Neurology Consult Stat Comment: Consulting Provider: Sharoan Damon Consulting Physician: Sharona Damon Reason for Consult: TIA Time Spent in preparation of Discharge (in minutes): 30 Hospital Course - Lab Results Lab Results: Most Recent Lab Values WBC 6.8 K/uL (4.8-10.8) 05/27/18 04:25 RBC 3.92 Mil/uL (3.80-5.20) 05/27/18 04:25 Hgb 11.7 g/dL (12.0-16.0) L 05/27/18 04:25 Hct 35.1 % (34.0-47.0) 05/27/18 04:25 MCV 89.6 fl (81.0-99.0) 05/27/18 04:25 MCH 29.8 pg (27.0-31.0) 05/27/18 04:25 MCHC 33.2 g/dL (33.0-37.0) 05/27/18 04:25 RDW 13.0 % (11.5-14.5) 05/27/18 04:25 Plt Count 239 K/uL (130-400) 05/27/18 04:25 MPV 8.4 fl (7.2-11.7) 05/27/18 04:25 Neut % (Auto) 65.0 % (50.0-75.0) 05/27/18 04:25 Lymph % (Auto) 20.7 % (20.0-40.0) 05/27/18 04:25 Victoria % (Auto) 9.8 % (0.0-10.0) 05/27/18 04:25 Eos % (Auto) 4.0 % (0.0-4.0) 05/27/18 04:25 Baso % (Auto) 0.5 % (0.0-2.0) 05/27/18 04:25 Neut # (Auto) 4.4 K/uL (1.8-7.0) 05/27/18 04:25 Lymph # (Auto) 1.4 K/uL (1.0-4.3) 05/27/18 04:25 Victoria # (Auto) 0.7 K/uL (0.0-0.8) 05/27/18 04:25 Eos # (Auto) 0.3 K/uL (0.0-0.7) 05/27/18 04:25 Baso # (Auto) 0.0 K/uL (0.0-0.2) 05/27/18 04:25 ESR 19 mm/hr (0-30) 05/27/18 04:25 PT 12.2 Seconds (9.8-13.1) 05/26/18 13:46 INR 1.1 05/26/18 13:46 APTT 29.4 Seconds (25.6-37.1) 05/26/18 13:46 Sodium 141 mmol/l (132-148) 05/27/18 04:25 Potassium 4.6 MMOL/L (3.6-5.0) 05/27/18 04:25 Chloride 102 mmol/L (98-107) 05/27/18 04:25 Carbon Dioxide 27 mmol/L (22-30) 05/27/18 04:25 Anion Gap 17 (10-20) 05/27/18 04:25 BUN 21 mg/dl (7-17) H 05/27/18 04:25 Creatinine 0.9 mg/dl (0.7-1.2) 05/27/18 04:25 Est GFR ( Amer) > 60 05/27/18 04:25 Est GFR (Non-Af Amer) > 60 05/27/18 04:25 POC Glucose (mg/dL) 157 mg/dL (65-110) H 05/27/18 11:40 Random Glucose 111 mg/dL (65-105) H 05/27/18 04:25 Hemoglobin A1c 7.5 % (4.2-6.5) H 05/27/18 04:25 Calcium 9.2 mg/dL (8.4-10.2) 05/27/18 04:25 Troponin I < 0.0120 ng/mL (0.00-0.120) 05/26/18 13:46 C-Reactive Protein 5.10 mg/L (0.0-9.9) 05/27/18 04:25 Triglycerides 136 mg/DL (0-149) D 05/27/18 12:50 Cholesterol 127 mg/dL (0-199) 05/27/18 12:50 LDL Cholesterol Direct 66 mg/dL (0-129) 05/27/18 12:50 HDL Cholesterol 40 MG/DL (30-70) 05/27/18 12:50 Vitamin B12 607 pg/mL (239-931) 05/27/18 04:25 25-OH Vitamin D Total 19.6 NG/ML (30.0-100.0) L 05/27/18 04:25 TSH 3rd Generation 1.79 mIU/ML (0.46-4.68) 05/27/18 04:25 - Hospital Course Hospital Course: 72 year old female with PMHx of HTN, DMII, TIA, left breast CA s/p left mastectomy in 1989 presented to [facility] ER with complaints of right sided jaw numbness associated with intermittent frontal and occipital headche x 1 week. Patient is admitted for TIA. -Head CT was unremarkable. -Neck MRA on 08/29/17: No significant stenosis identified including B/L common and internal carotid arteries. -Head MRA on 08/30/17: Impression: Limited B/L ICA cavernous segment atherosclerosis w/o significant stenosis resulting. Remainder of the intracranial MRA in otherwise unremarkable. -MRI w/o contrast: No acute intracranial abnormality. Specifically, no evidence for acute infarction. Moderate chronic microangiopathic changes and mild age-related global parenchymal volume loss. -Neurology: Dr. Damon Rx: ASA and plavix Symptoms resolved; neurologically intact. Patient stable for discharge home with ER precautions. Plan dw Dr. Manan Padron MD PGY2 Discharge Exam - Head Exam Head Exam: ATRAUMATIC, NORMAL INSPECTION, NORMOCEPHALIC - Eye Exam Eye Exam: EOMI - ENT Exam ENT Exam: Mucous Membranes Moist - Neck Exam Neck exam: Full Rom - Respiratory Exam Respiratory Exam: Clear to PA & Lateral, NORMAL BREATHING PATTERN. absent: Wheezes - Cardiovascular Exam Cardiovascular Exam: +S1, +S2 - GI/Abdominal Exam GI & Abdominal Exam: Normal Bowel Sounds, Soft. absent: Tenderness - Neurological Exam Neurological exam: Alert, CN II-XII Intact, Normal Gait, Oriented x3 Additional comments: NO facial numbness or headache - Psychiatric Exam Psychiatric exam: Normal Affect, Normal Mood Discharge Plan - Discharge Medications Prescriptions: Aspirin [Aspirin Chewable] 81 mg PO DAILY #30 chew Clopidogrel [Plavix] 75 mg PO DAILY #30 tab Levothyroxine [Synthroid] 50 mcg PO DAILY #30 tab Lisinopril [Zestril] 2.5 mg PO DAILY #30 tab metFORMIN [glucOPHAGE] 500 mg PO BID #60 tab Pantoprazole [Protonix EC Tab] 40 mg PO DAILY PRN #30 ect PRN Reason: Heartburn Simvastatin [Zocor] 40 mg PO HS #30 tablet - Follow Up Plan Condition: FAIR Disposition: HOME/ ROUTINE Instructions: Transient Ischemic Attack (DC) Additional Instructions: Please follow up with primary care doctor in 3-5 days Please follow up with Dr. Damon, Neurology. Referrals: Radha Dyson MD [Family Provider] - Sharona Damon MD [Medical Doctor] - <Tejal Hinkle - Last Filed: 05/27/18 17:59> Provider - Provider Date of Admission: 05/26/18 17:50 Attending physician: Niraj Rodriguez MD Consults: 05/26/18 18:21 Neurology Consult Stat Comment: Consulting Provider: Sharona Damon Consulting Physician: Sharona Damon Reason for Consult: TIA Hospital Course - Lab Results Lab Results: Most Recent Lab Values WBC 6.8 K/uL (4.8-10.8) 05/27/18 04:25 RBC 3.92 Mil/uL (3.80-5.20) 05/27/18 04:25 Hgb 11.7 g/dL (12.0-16.0) L 05/27/18 04:25 Hct 35.1 % (34.0-47.0) 05/27/18 04:25 MCV 89.6 fl (81.0-99.0) 05/27/18 04:25 MCH 29.8 pg (27.0-31.0) 05/27/18 04:25 MCHC 33.2 g/dL (33.0-37.0) 05/27/18 04:25 RDW 13.0 % (11.5-14.5) 05/27/18 04:25 Plt Count 239 K/uL (130-400) 05/27/18 04:25 MPV 8.4 fl (7.2-11.7) 05/27/18 04:25 Neut % (Auto) 65.0 % (50.0-75.0) 05/27/18 04:25 Lymph % (Auto) 20.7 % (20.0-40.0) 05/27/18 04:25 Victoria % (Auto) 9.8 % (0.0-10.0) 05/27/18 04:25 Eos % (Auto) 4.0 % (0.0-4.0) 05/27/18 04:25 Baso % (Auto) 0.5 % (0.0-2.0) 05/27/18 04:25 Neut # (Auto) 4.4 K/uL (1.8-7.0) 05/27/18 04:25 Lymph # (Auto) 1.4 K/uL (1.0-4.3) 05/27/18 04:25 Victoria # (Auto) 0.7 K/uL (0.0-0.8) 05/27/18 04:25 Eos # (Auto) 0.3 K/uL (0.0-0.7) 05/27/18 04:25 Baso # (Auto) 0.0 K/uL (0.0-0.2) 05/27/18 04:25 ESR 19 mm/hr (0-30) 05/27/18 04:25 PT 12.2 Seconds (9.8-13.1) 05/26/18 13:46 INR 1.1 05/26/18 13:46 APTT 29.4 Seconds (25.6-37.1) 05/26/18 13:46 Sodium 141 mmol/l (132-148) 05/27/18 04:25 Potassium 4.6 MMOL/L (3.6-5.0) 05/27/18 04:25 Chloride 102 mmol/L (98-107) 05/27/18 04:25 Carbon Dioxide 27 mmol/L (22-30) 05/27/18 04:25 Anion Gap 17 (10-20) 05/27/18 04:25 BUN 21 mg/dl (7-17) H 05/27/18 04:25 Creatinine 0.9 mg/dl (0.7-1.2) 05/27/18 04:25 Est GFR ( Amer) > 60 05/27/18 04:25 Est GFR (Non-Af Amer) > 60 05/27/18 04:25 POC Glucose (mg/dL) 157 mg/dL (65-110) H 05/27/18 11:40 Random Glucose 111 mg/dL (65-105) H 05/27/18 04:25 Hemoglobin A1c 7.5 % (4.2-6.5) H 05/27/18 04:25 Calcium 9.2 mg/dL (8.4-10.2) 05/27/18 04:25 Troponin I < 0.0120 ng/mL (0.00-0.120) 05/26/18 13:46 C-Reactive Protein 5.10 mg/L (0.0-9.9) 05/27/18 04:25 Triglycerides 136 mg/DL (0-149) D 05/27/18 12:50 Cholesterol 127 mg/dL (0-199) 05/27/18 12:50 LDL Cholesterol Direct 66 mg/dL (0-129) 05/27/18 12:50 HDL Cholesterol 40 MG/DL (30-70) 05/27/18 12:50 Vitamin B12 607 pg/mL (239-931) 05/27/18 04:25 25-OH Vitamin D Total 19.6 NG/ML (30.0-100.0) L 05/27/18 04:25 TSH 3rd Generation 1.79 mIU/ML (0.46-4.68) 05/27/18 04:25 Attending/Attestation - Attestation I have personally seen and examined this patient.: Yes I have fully participated in the care of the patient.: Yes I have reviewed all pertinent clinical information, including history, physical exam and plan: Yes Notes (Text): TIA - symptoms resolved - MRI of Brain neg acute CVA, pt had recent ECHO, MRA of Head and Neck done a few months ago neg - cleared by Neurology for d/c home
== END 2018-05-27 16:05 | disposition home or self-care (01) ==
LOC: H.ER 12:58 → H.ERHOLD 17:50 → H.TEL 22:31
DX: G45.9 Transient cerebral ischemic attack, unspecified (principal); E03.9 Hypothyroidism, unspecified; E78.00 Pure hypercholesterolemia, unspecified; E78.5 Hyperlipidemia, unspecified; I10 Essential (primary) hypertension; J45.909 Unspecified asthma, uncomplicated; M81.0 Age-related osteoporosis without current pathological fracture; Z79.02 Long term (current) use of antithrombotics/antiplatelets; Z79.84 Long term (current) use of oral hypoglycemic drugs; Z79.890 Hormone replacement therapy; Z85.3 Personal history of malignant neoplasm of breast; Z86.73 Personal history of transient ischemic attack (TIA), and cerebral infarction without residual deficits; Z90.12 Acquired absence of left breast and nipple; E11.9 Type 2 diabetes mellitus without complications; M19.90 Unspecified osteoarthritis, unspecified site; Z88.2 Allergy status to sulfonamides; Z91.041 Radiographic dye allergy status; Z91.013 Allergy to seafood; Z79.82 Long term (current) use of aspirin
CPT/HCPCS: 36415; 70450; 70551; 80048; 80061; 81240; 82306; 82607; 82948; 83036; 84443; 84484; 85025; 85610; 85613; 85651; 85730; 86140; 93005; 97161; 99285; G0378; G8978; G8979; G8980; J1650

== ENCOUNTER 2018-06-24 09:59 | Inpatient (IN) | payer MEDICARE, MEDICAID ==
[2018-06-24 10:08] VITALS: BMI 22.4
--- NOTE | 2018-06-24 14:13 | ED PDOC ---
Syncope/Near Syncope/Dizziness Time Seen by Provider: 06/24/18 12:07 Chief Complaint (Nursing): Dizziness/Lightheaded Additional Complaint(s): 72 y/o F with hx of TIA, HTN, HL, DM who presents with numbness and "heaviness" on Right side of face. Pt states that she became uneasy last night and had insomnia. She woke up this morning at aroung 7am and noted some Right sided facial numbness near her mouth and had some heaviness on her Right leg. She also states that her face felt heavy. She had similar symptoms with prior TIA a few months ago. Most of her symptoms resolved prior to arrival to ER but she continues to feel very mild numbness on the Right side of her face. Denies dizziness, palpitations, SOB, chest pain, N/V, gait instability, speech disturbance, visual disturbance. NIHSS Stroke Scale - Date/Time Evaluation Performed Date Performed: 06/24/18 When Was NIHSS Performed: Baseline (6hrs after onset of symptoms) - How Severe is the Stroke Level of Consciousness: 0=Alert LOC to Questions: 0=Both comments correct LOC to commands: 0=Obeys both correctly Best Gaze: 0=Normal Visual: 0=No visual loss Facial: 0=Normal Motor Arm - Left: 0=No drift Motor Arm - Right: 0=No drift Motor Leg - Left: 0=No drift Motor Leg - Right: 0=No drift Limb Ataxia: 0=Absent Sensory: 0=Normal Best Language: 0=No aphasia Dysarthia: 0=Normal articulation Past Medical History Reviewed: Historical Data, Nursing Documentation, Vital Signs Vital Signs: Last Vital Signs Temp 98.8 F 06/24/18 10:06 Pulse 81 06/24/18 10:06 Resp BP 128/43 L 06/24/18 10:06 Pulse Ox 98 06/24/18 10:10 - Medical History PMH: Arthritis, Asthma, Diabetes, HTN, Hypercholesterolemia, Hypothyroidism, Osteoporosis, Pancreatitis, TIA Denies: HIV, Chronic Kidney Disease - Surgical History Surgical History: - Family History Family History: States: Unknown Family Hx - Home Medications Home Medications: Ambulatory Orders Medication Instructions Recorded Clopidogrel [Plavix] 75 mg PO DAILY #30 tab 05/27/18 Levothyroxine [Synthroid] 50 mcg PO DAILY #30 tab 05/27/18 Lisinopril [Zestril] 2.5 mg PO DAILY #30 tab 05/27/18 Simvastatin [Zocor] 40 mg PO HS #30 tablet 05/27/18 metFORMIN [glucOPHAGE] 500 mg PO BID #60 tab 05/27/18 Albuterol Sulfate [Ventolin Hfa] 2 puff IH Q6 PRN 06/24/18 Aspirin [Adult Aspirin] 81 mg PO DAILY 06/24/18 Calcium Carbonate/Vitamin D3 1 tab PO BID 06/24/18 [Calcium 500 + Vit D Caplet] Ergocalciferol (Vitamin D2) 50,000 unit PO SUN 06/24/18 [Vitamin D2] Montelukast [Singulair] 10 mg PO HS 06/24/18 Pantoprazole [Protonix EC Tab] 40 mg PO DAILY 06/24/18 - Allergies Allergies/Adverse Reactions: Allergies Allergy/AdvReac Type Severity Reaction Status Date / Time iodine AdvReac ANAPHYLAXIS Verified 06/24/18 10:10 shellfish derived AdvReac ANAPHYLAXIS Verified 06/24/18 10:10 sulfacetamide AdvReac ANAPHYLAXIS Verified 06/24/18 10:10 [From Sulfamide] seafood Allergy ANAPHYLAXIS Uncoded 06/24/18 10:10 Physical Exam - Reviewed Nursing Documentation Reviewed: Yes Vital Signs Reviewed: Yes - Physical Exam Appears: Positive for: Well Head Exam: Positive for: ATRAUMATIC Skin: Positive for: Normal Color Neck: Positive for: Normal Cardiovascular/Chest: Positive for: Regular Rate, Rhythm Respiratory: Positive for: Normal Breath Sounds Pulses-Radial (L): 2+ Pulses-Radial (R): 2+ Gastrointestinal/Abdominal: Positive for: Normal Exam Back: Positive for: Normal Inspection Extremity: Positive for: Normal ROM (with flexion/extension/abduction at shoulder B/L) Neurologic/Psych: Positive for: Alert, Oriented, Mood/Affect (appropriate), Gait (stable), Other (no tongue deviation, smile is symmetric, sensation to light touch intact in face, B/L upper and lower extremities. ). Negative for: Aphasia, Facial Droop - Laboratory Results Result Diagrams: 06/24/18 15:02 06/24/18 15:02 - ECG O2 Sat by Pulse Oximetry: 98 Medical Decision Making Medical Decision Making: CBC, CMP Head CT w/o contrast Telemetry EKG: NSR, HR 61, no ischemic change. Head CT w/o contrast: No acute intracranial abnormality.If there is a persistent focal neurologic deficit and an ongoing clinical concern for acute infarction, an MRI of the brain without intravenous contrast would be a more sensitive modality for evaluation of hyperacute/acute ischemic infarction. Mild chronic microangiopathic changes and mild age-related global parenchymal volume loss. Neurology consulted, Dr. Go, recommended additional ASA 81mg PO x 1, Brain MRI ordered. Pt admitted under Dr. Angeles for TIA. Disposition - Clinical Impression Clinical Impression: TIA (transient ischemic attack) - Patient ED Disposition Is Patient to be Admitted: Yes Discussed With : Gissel Angeles - Disposition Disposition: Transfer of Care Disposition Time: 16:49 Condition: FAIR
--- NOTE | 2018-06-24 15:07 | CT ---
Date of service: 06/24/2018 PROCEDURE: CT HEAD WITHOUT CONTRAST. HISTORY: Numbness s and tingling in right side of face COMPARISON: 05/26/2018. TECHNIQUE: Axial computed tomography images were obtained through the head/brain without intravenous contrast. Radiation dose: Total exam DLP = 736.87 mGy-cm. This CT exam was performed using one or more of the following dose reduction techniques: Automated exposure control, adjustment of the mA and/or kV according to patient size, and/or use of iterative reconstruction technique. FINDINGS: HEMORRHAGE: No intracranial hemorrhage. BRAIN: There are mild chronic microangiopathic changes. There is no mass, mass effect or abnormal extra-axial fluid collection. There is no territorial infarction. The midline sagittal structures are normal.There are coarse atherosclerotic calcifications in the cavernous carotid arteries. VENTRICLES: There is mild age-related global parenchymal volume loss and proportionate enlargement of the ventricles and cortical sulci. CALVARIUM: There is no calvarial fracture or extracranial soft tissue swelling. PARANASAL SINUSES: Predominantly clear. MASTOID AIR CELLS: Predominantly clear. OTHER FINDINGS: None. IMPRESSION: No acute intracranial abnormality.If there is a persistent focal neurologic deficit and an ongoing clinical concern for acute infarction, an MRI of the brain without intravenous contrast would be a more sensitive modality for evaluation of hyperacute/acute ischemic infarction. Mild chronic microangiopathic changes and mild age-related global parenchymal volume loss.
[2018-06-24 15:28] LABS: BASO % 0.7 % (0.0-2.0); EOS # 0.3 K/uL (0.0-0.7); EOS % 4.8 % (0.0-4.0); HEMOGLOBIN 11.7 g/dL (12.0-16.0); LYMPH # 1.4 K/uL (1.0-4.3); LYMPH % 23.8 % (20.0-40.0); MEAN CELL VOLUME 89.8 fl (81.0-99.0); MEAN CORPUSCULAR HEMOGLOBIN 29.4 pg (27.0-31.0); MEAN CORPUSCULAR HGB CONC 32.8 g/dL (33.0-37.0); MEAN PLATELET VOLUME 8.2 fl (7.2-11.7); MONO # 0.6 K/uL (0.0-0.8); MONO % 10.2 % (0.0-10.0); NEUT # 3.5 K/uL (1.8-7.0); NEUT % 60.5 % (50.0-75.0); NRBC % 0.1 % (0.0-0.0); RBC 3.97 Mil/uL (3.80-5.20); RED CELL DISTRIBUTION WIDTH 13.5 % (11.5-14.5); WHITE BLOOD COUNT 5.7 K/uL (4.8-10.8)
[2018-06-24 15:51] LABS: ALB/GLOB RATIO 1.3 (1.0-2.1); ALBUMIN 4.2 g/dL (3.5-5.0); ALT/SGPT 33 U/L (9-52); AST/SGOT 29 U/L (14-36); BLOOD UREA NITROGEN 16 mg/dl (7-17); CALCIUM 9.7 mg/dL (8.4-10.2); GFR NON-AFRICAN AMERICAN > 60
[2018-06-24] MEDS: Insulin Lispro (humaLOG) 100 Units/ml Inj SC SCH (22:00)
[2018-06-25] MEDS: Levothyroxine 50 MCG TAB PO SCH (05:55)
[2018-06-25] MEDS: Insulin Lispro (humaLOG) 100 Units/ml Inj SC SCH ×4 (06:45→22:01)
--- NOTE | 2018-06-25 07:42 | MRI ---
Date of service: 06/24/2018 PROCEDURE: MRI BRAIN WITHOUT CONTRAST HISTORY: r/o CVA COMPARISON: None available. TECHNIQUE: Multiplanar, multisequence MR images of the brain were obtained without intravenous contrast enhancement. FINDINGS: HEMORRHAGE: None DWI: No evidence of an acute or early subacute infarction. BRAIN PARENCHYMA: Good corticomedullary differentiation is seen. Proportional, diffuse expansion of the ventriculosulcal and cisternal spaces is appreciated with white matter signal changes compatible with diffuse cerebral atrophy and chronic microangiopathy. No suspicious extra-axial fluid collection is identified and the midline brain anatomy appears grossly nonfocal as imaged. There is no mass effect throughout. VENTRICLES: Unremarkable. No hydrocephalus. CRANIUM: Unremarkable. ORBITS: Grossly unremarkable. PARANASAL SINUSES/MASTOIDS: Clear VASCULAR SYSTEM: Skull base flow voids intact. OTHER FINDINGS: None. IMPRESSION: Age-related degenerative findings are appreciated which are age-appropriate. No acute intracranial findings by standard MR criteria including brain infarction. Follow-up brain imaging is available by CT or MRI if clinically warranted. Concordant preliminary report from [facility], 06/24/2018 7:41 p.m..
[2018-06-25] MEDS: Enoxaparin 40 mg Syringe SC SCH (09:37)
[2018-06-25] MEDS: Pantoprazole 40 mg EC Tab PO SCH (09:39)
[2018-06-26] MEDS: Levothyroxine 50 MCG TAB PO SCH (06:02)
[2018-06-26] MEDS: Pantoprazole 40 mg EC Tab PO SCH (09:08)
[2018-06-26] MEDS: Enoxaparin 40 mg Syringe SC SCH (09:08)
[2018-06-26] MEDS: Insulin Lispro (humaLOG) 100 Units/ml Inj SC SCH ×4 (09:11→23:36)
--- NOTE | 2018-06-26 09:33 | CP.PCM.HP ---
History of Present Illness - History of Present Illness History of Present Illness: CC: Right Side of face History of Present Illness: A 72 y/o F with hx of TIA, HTN, HL, DM who presents with numbness and "heaviness" on Right side of face. Pt states that she became uneasy last night and had insomnia. She woke up this morning at aroung 7am and noted some Right sided facial numbness near her mouth and had some heaviness on her Right leg. She also states that her face felt heavy. She had similar symptoms with prior TIA a few months ago. Most of her symptoms resolved prior to arrival to ER but she continues to feel very mild numbness on the Right side of her face. Denies dizziness, palpitations, SOB, chest pain, N/V, gait instability, speech disturbance, visual disturbance. Present on Admission - Present on Admission Any Indicators Present on Admission: No Review of Systems - Review of Systems All systems: reviewed and no additional remarkable complaints except Review of Systems: as per HPI Past Patient History - Infectious Disease Hx of Infectious Diseases: None - Past Medical History & Family History Past Medical History?: Yes - Past Social History Smoking Status: Never Smoked Alcohol: None Drugs: Denies - CARDIAC Hx Cardiac Disorders: Yes Hx Hypercholesterolemia: Yes Hx Hypertension: Yes - PULMONARY Hx Respiratory Disorders: Yes Hx Asthma: Yes - NEUROLOGICAL Hx Neurological Disorder: Yes Hx Transient Ischemic Attacks (TIA): Yes - HEENT Hx HEENT Problems: No - RENAL Hx Chronic Kidney Disease: No - ENDOCRINE/METABOLIC Hx Endocrine Disorders: Yes Hx Diabetes Mellitus Type 2: Yes - HEMATOLOGICAL/ONCOLOGICAL Hx Blood Disorders: No - INTEGUMENTARY Hx Dermatological Problems: No - MUSCULOSKELETAL/RHEUMATOLOGICAL Hx Arthritis: Yes Hx Falls: Yes Hx Osteoporosis: Yes - GASTROINTESTINAL Hx Pancreatitis: Yes - GENITOURINARY/GYNECOLOGICAL Hx Genitourinary Disorders: No - PSYCHIATRIC Hx Substance Use: No - SURGICAL HISTORY Hx Surgeries: Yes Hx Section: Yes Hx Hysterectomy: Yes Hx Mastectomy: Yes (left) Other/Comment: Abdominal surgery for intestinal obstruction. - ANESTHESIA Hx Anesthesia: Yes Hx Anesthesia Reactions: No Hx Malignant Hyperthermia: No Meds Allergies/Adverse Reactions: Allergies Allergy/AdvReac Type Severity Reaction Status Date / Time iodine AdvReac ANAPHYLAXIS Verified 06/24/18 10:10 shellfish derived AdvReac ANAPHYLAXIS Verified 06/24/18 10:10 sulfacetamide AdvReac ANAPHYLAXIS Verified 06/24/18 10:10 [From Sulfamide] seafood Allergy ANAPHYLAXIS Uncoded 06/24/18 10:10 Physical Exam - Constitutional Appears: Well, No Acute Distress - Head Exam Head Exam: ATRAUMATIC, NORMAL INSPECTION, NORMOCEPHALIC - Eye Exam Eye Exam: EOMI, Normal appearance, PERRL Pupil Exam: NORMAL ACCOMODATION, PERRL - ENT Exam ENT Exam: Mucous Membranes Moist, Normal Exam - Neck Exam Neck exam: Positive for: Normal Inspection - Respiratory Exam Respiratory Exam: Clear to Auscultation Bilateral, NORMAL BREATHING PATTERN - Cardiovascular Exam Cardiovascular Exam: REGULAR RHYTHM, +S1, +S2 - GI/Abdominal Exam GI & Abdominal Exam: Normal Bowel Sounds, Soft. absent: Tenderness - Extremities Exam Extremities exam: Positive for: full ROM, normal capillary refill, normal inspection - Back Exam Back exam: FULL ROM, NORMAL INSPECTION - Neurological Exam Neurological exam: Alert, CN II-XII Intact, Normal Gait, Oriented x3, Reflexes Normal - Psychiatric Exam Psychiatric exam: Normal Affect, Normal Mood - Skin Skin Exam: Dry, Intact, Normal Color, Warm Results - Vital Signs Recent Vital Signs: Last Vital Signs Temp 97.6 F 06/26/18 07:53 Pulse 65 06/26/18 09:07 Resp 20 06/26/18 07:53 BP 113/69 06/26/18 09:07 Pulse Ox 100 06/26/18 07:53 - Labs Result Diagrams: 06/24/18 15:02 06/24/18 15:02 Labs: Laboratory Results - last 24 hr 06/25/18 06/25/18 06/25/18 05:00 10:40 16:00 POC Glucose (mg/dL) 245 H 126 H Hemoglobin A1c 7.2 H 06/25/18 06/26/18 21:31 05:19 POC Glucose (mg/dL) 126 H 127 H Hemoglobin A1c - Imaging and Cardiology CT scan - head Status: Report reviewed by me Additional comment: Date of service: 06/24/2018 PROCEDURE: CT HEAD WITHOUT CONTRAST. HISTORY: Numbness s and tingling in right side of face COMPARISON: 05/26/2018. TECHNIQUE: Axial computed tomography images were obtained through the head/brain without intravenous contrast. Radiation dose: Total exam DLP = 736.87 mGy-cm. This CT exam was performed using one or more of the following dose reduction techniques: Automated exposure control, adjustment of the mA and/or kV according to patient size, and/or use of iterative reconstruction technique. FINDINGS: HEMORRHAGE: No intracranial hemorrhage. BRAIN: There are mild chronic microangiopathic changes. There is no mass, mass effect or abnormal extra-axial fluid collection. There is no territorial infarction. The midline sagittal structures are normal.There are coarse atherosclerotic calcifications in the cavernous carotid arteries. VENTRICLES: There is mild age-related global parenchymal volume loss and proportionate enlargement of the ventricles and cortical sulci. CALVARIUM: There is no calvarial fracture or extracranial soft tissue swelling. PARANASAL SINUSES: Predominantly clear. MASTOID AIR CELLS: Predominantly clear. OTHER FINDINGS: None. IMPRESSION: No acute intracranial abnormality.If there is a persistent focal neurologic deficit and an ongoing clinical concern for acute infarction, an MRI of the brain without intravenous contrast would be a more sensitive modality for evaluation of hyperacute/acute ischemic infarction. Mild chronic microangiopathic changes and mild age-related global parenchymal volume loss. MRI - head Status: Report reviewed by me Additional comment: Date of service: 06/24/2018 PROCEDURE: MRI BRAIN WITHOUT CONTRAST HISTORY: r/o CVA COMPARISON: None available. TECHNIQUE: Multiplanar, multisequence MR images of the brain were obtained without intravenous contrast enhancement. FINDINGS: HEMORRHAGE: None DWI: No evidence of an acute or early subacute infarction. BRAIN PARENCHYMA: Good corticomedullary differentiation is seen. Proportional, diffuse expansion of the ventriculosulcal and cisternal spaces is appreciated with white matter signal changes compatible with diffuse cerebral atrophy and chronic microangiopathy. No suspicious extra-axial fluid collection is identified and the midline brain anatomy appears grossly nonfocal as imaged. There is no mass effect throughout. VENTRICLES: Unremarkable. No hydrocephalus. CRANIUM: Unremarkable. ORBITS: Grossly unremarkable. PARANASAL SINUSES/MASTOIDS: Clear VASCULAR SYSTEM: Skull base flow voids intact. OTHER FINDINGS: None. IMPRESSION: Age-related degenerative findings are appreciated which are age-appropriate. No acute intracranial findings by standard MR criteria including brain infarction. Follow-up brain imaging is available by CT or MRI if clinically warranted. Assessment & Plan (1) TIA (transient ischemic attack) Status: Acute Priority: High (2) Diabetes mellitus type 2 in nonobese Status: Acute Priority: High (3) Dizziness Status: Acute Priority: High (4) Hypothyroidism Status: Acute Priority: Low - Assessment and Plan (Free Text) Plan: ASA/Plavix/Atorvastatin/BB Neuro check MRA Head/Neck B/L Carotid Doppler TTE Fasting Lipid Profile HgA1C TSH Neurology Consult
--- NOTE | 2018-06-26 14:46 | CP.PCM.CON ---
History of Present Illness - History of Present Illness History of Present Illness: Neurology Consult Note: Mrs. Jang is a 72-year-old woman, referred to me by Dr. Angeles, with a past medical history of TIA, HTN, HL, DM who presented to the ED with numbness and "heaviness" that affected the right side of her face and her right leg, that she noticed when she woke up two days ago. By the time she was in the ED, most of her symptoms had resolved. MRI of the brain did not show any acute findings. Her home medications included aspirin and Plavix for prevention. Review of Systems - Constitutional Constitutional: As Per HPI - EENT Eyes: absent: As Per HPI, Blind Spots, Blurred Vision, Change in Vision, D ecreased Night Vision, Diplopia, Discharge, Dry Eye, Exophthalmos, Floaters, Irritation, Itchy Eyes, Loss of Peripheral Vision, Pain, Photophobia, Requires Corrective Lenses, Sees Flashes, Spots in Vision, Tunnel Vision, Other Visual Disturbances, Loss of Vision, Other Ears: absent: As Per HPI, Decreased Hearing, Ear Discharge, Ear Pain, Tinnitus, Abnormal Hearing, Disequilibrium, Dizziness, Other Nose/Mouth/Throat: absent: As Per HPI, Epistaxis, Nasal Congestion, Nasal Discharge, Nasal Obstruction, Nasal Trauma, Nose Pain, Post Nasal Drip, Sinus Pain, Sinus Pressure, Bleeding Gums, Change in Voice, Dental Pain, Dry Mouth, Dysphagia, Halitosis, Hoarsness, Lip Swelling, Mouth Lesions, Mouth Pain, Odynophagia, Sore Throat, Throat Swelling, Tongue Swelling, Facial Pain, Neck Pain, Neck Mass, Other - Breasts Breasts: absent: As Per HPI, Change in Shape, Mass, Pain, Nipple Discharge, Nipple Inversion, Skin Changes, Swelling, Other - Cardiovascular Cardiovascular: absent: As Per HPI, Acrocyanosis, Chest Pain, Chest Pain at Rest, Chest Pain with Activity, Claudication, Diaphoresis, Dyspnea, Dyspnea on Exertion, Edema, Irregular Heart Rhythm, Pain Radiating to Arm/Neck/Jaw, Leg Edema, Leg Ulcers, Lightheadedness, Orthopnea, Palpitations, Paroxysmal Nocturnal Dyspnea, Pedal Edema, Radiating Pain, Rapid Heart Rate, Slow Heart Rate, Syncope, Other - Respiratory Respiratory: absent: As Per HPI, Cough, Dyspnea, Hemoptysis, Dyspnea on Exertion, Wheezing, Snoring, Stridor, Pain on Inspiration, Chest Congestion, Excessive Mucous Production, Change in Mucous Color, Pain with Coughing, Other - Gastrointestinal Gastrointestinal: absent: As Per HPI, Abdominal Pain, Belching, Bloating, Change in Bowel Habits, Change in Stool Character, Coffee Ground Emesis, Constipation, Cramping, Diarrhea, Dyspepsia, Dysphagia, Early Satiety, Excessive Flatus, Fecal Incontinence, Heartburn, Hematemesis, Hematochezia, Loose Stools, Melena, Nausea, Odynophagia, Temesmus, Vomiting, Other - Musculoskeletal Musculoskeletal: absent: As Per HPI, Abnormal Gait, Arthralgias, Atrophy, Back Pain, Deformity, Joint Swelling, Limited Range of Motion, Loss of Height, Muscle Cramps, Muscle Weakness, Myalgias, Neck Pain, Numbness, Radiating Pain into Limb, Stiffness, Tingling, Other - Integumentary Integumentary: absent: As Per HPI, Acne, Alopecia, Bleeding Lesions, Change in Hair, Change in Nails, Change in Pigmentation, Changing Lesions, Dry Skin, Erythema, Furuncle, Hirsutism, Lesions, New Lesions, Non-Healing Lesions, Ph otosensitivity, Pruritus, Rash, Skin Pain, Skin Ulcer, Sores, Striae, Swelling, Unusual Bruising, Wounds, Jaundice, Other - Neurological Neurological: As Per HPI - Psychiatric Psychiatric: absent: As Per HPI, Abnormal Sleep Pattern, Anhedonia, Anxiety, Auditory Hallucinations, Behavioral Changes, Change in Appetite, Change in Libido, Confusion, Depression, Difficulty Concentrating, Hallucinations, Homicidal Ideation, Hopelessness, Irritability, Memory Loss, Mood Swings, Panic Attacks, Paranoia, Suicidal Ideation, Visual Hallucinations, Tactile Hallucinations, Other - Endocrine Endocrine: absent: As Per HPI, Change in Body Appearance, Change in Libido, Cold Intolorance, Deepening of Voice, Excessive Sweating, Fatigue, Flushing, Heat Intolorance, Increase in Ring/Shoe/Hat Size, Palpitations, Polydipsia, Polyphagia, Polyuria, Other Past Patient History - Infectious Disease Hx of Infectious Diseases: None - Past Medical History & Family History Past Medical History?: Yes - Past Social History Smoking Status: Never Smoked - CARDIAC Hx Cardiac Disorders: Yes Hx Hypercholesterolemia: Yes Hx Hypertension: Yes - PULMONARY Hx Respiratory Disorders: Yes Hx Asthma: Yes - NEUROLOGICAL Hx Neurological Disorder: Yes Hx Transient Ischemic Attacks (TIA): Yes - HEENT Hx HEENT Problems: No - RENAL Hx Chronic Kidney Disease: No - ENDOCRINE/METABOLIC Hx Endocrine Disorders: Yes Hx Diabetes Mellitus Type 2: Yes - HEMATOLOGICAL/ONCOLOGICAL Hx Blood Disorders: No - INTEGUMENTARY Hx Dermatological Problems: No - MUSCULOSKELETAL/RHEUMATOLOGICAL Hx Arthritis: Yes Hx Falls: Yes Hx Osteoporosis: Yes - GASTROINTESTINAL Hx Pancreatitis: Yes - GENITOURINARY/GYNECOLOGICAL Hx Genitourinary Disorders: No - PSYCHIATRIC Hx Substance Use: No - SURGICAL HISTORY Hx Surgeries: Yes Hx Section: Yes Hx Hysterectomy: Yes Hx Mastectomy: Yes (left) Other/Comment: Abdominal surgery for intestinal obstruction. - ANESTHESIA Hx Anesthesia: Yes Hx Anesthesia Reactions: No Hx Malignant Hyperthermia: No Meds Allergies/Adverse Reactions: Allergies Allergy/AdvReac Type Severity Reaction Status Date / Time iodine AdvReac ANAPHYLAXIS Verified 06/24/18 10:10 shellfish derived AdvReac ANAPHYLAXIS Verified 06/24/18 10:10 sulfacetamide AdvReac ANAPHYLAXIS Verified 06/24/18 10:10 [From Sulfamide] seafood Allergy ANAPHYLAXIS Uncoded 06/24/18 10:10 - Medications Medications: Current Medications Aspirin (Ecotrin) 81 mg PO DAILY [facility] Last Admin: 06/26/18 09:11 Dose: 81 mg Atorvastatin Calcium (Lipitor) 20 mg PO [facility] Last Admin: 06/25/18 22:00 Dose: 20 mg Clopidogrel Bisulfate (Plavix) 75 mg PO DAILY [facility] Last Admin: 06/26/18 09:08 Dose: 75 mg Enoxaparin Sodium (Lovenox) 40 mg SC DAILY [facility]; Protocol Last Admin: 06/26/18 09:08 Dose: 40 mg Ergocalciferol (Drisdol 50,000 Intl Units Cap) 1 cap PO SUN [facility] Insulin Human Lispro (Humalog) 0 units SC [facility]; Protocol Last Admin: 06/26/18 14:10 Dose: 1 units Levothyroxine Sodium (Synthroid) 50 mcg PO DAILY@0630 [facility] Last Admin: 06/26/18 06:02 Dose: 50 mcg Lisinopril (Zestril) 2.5 mg PO DAILY [facility] Last Admin: 06/26/18 09:07 Dose: 2.5 mg Metformin HCl (Glucophage) 500 mg PO BIDWM [facility] Last Admin: 06/26/18 09:07 Dose: 500 mg Montelukast Sodium (Singulair) 10 mg PO HS [facility] Last Admin: 06/25/18 22:00 Dose: 10 mg Pantoprazole Sodium (Protonix Ec Tab) 40 mg PO DAILY [facility] Last Admin: 06/26/18 09:08 Dose: 40 mg Physical Exam - Constitutional Appears: Well - Head Exam Head Exam: ATRAUMATIC, NORMAL INSPECTION, NORMOCEPHALIC - Eye Exam Eye Exam: EOMI, Normal appearance, PERRL Pupil Exam: NORMAL ACCOMODATION, PERRL - ENT Exam ENT Exam: Mucous Membranes Moist, Normal Exam - Neck Exam Neck exam: Positive for: Normal Inspection - Respiratory Exam Respiratory Exam: Clear to Auscultation Bilateral, NORMAL BREATHING PATTERN - Cardiovascular Exam Cardiovascular Exam: REGULAR RHYTHM, +S1, +S2 - GI/Abdominal Exam GI & Abdominal Exam: Normal Bowel Sounds, Soft. absent: Tenderness - Rectal Exam Rectal Exam: Deferred - Extremities Exam Extremities exam: Positive for: normal inspection - Back Exam Back exam: NORMAL INSPECTION - Neurological Exam Neurological exam: Alert, CN II-XII Intact, Normal Gait, Oriented x3, Reflexes Normal - Psychiatric Exam Psychiatric exam: Normal Affect, Normal Mood - Skin Skin Exam: Dry, Intact, Normal Color, Warm Results - Vital Signs Recent Vital Signs: Last Vital Signs Temp 97.8 F 06/26/18 12:05 Pulse 77 06/26/18 12:05 Resp 18 06/26/18 12:05 BP 118/56 L 06/26/18 12:05 Pulse Ox 96 06/26/18 12:05 - Labs Result Diagrams: 06/24/18 15:02 06/24/18 15:02 Labs: Laboratory Results - last 24 hr 06/25/18 06/25/18 06/26/18 16:00 21:31 05:19 POC Glucose (mg/dL) 126 H 126 H 127 H Assessment & Plan (1) TIA (transient ischemic attack) Assessment and Plan: The patient's symptoms are resolved. She had a TIA despite being on aspirin and plavix. I recommend checking platelet function testing for plavix to ensure she is therapeutic. I also recommend MRA of the head/neck for further evaluation. Cardiac work-up is also recommended while the patient is on telemetry. PT/OT eval and treatment if needed. Otherwise, continue current medication management and treatment of risk factors for stroke. Thank you for this consultation. Status: Acute Priority: High
--- NOTE | 2018-06-26 14:55 | MRI ---
Date of service: 06/26/2018 PROCEDURE: Magnetic Resonance Angiography Brain HISTORY: r/o cva COMPARISON: None available. TECHNIQUE: 3D time of flight MR angiography of the intracranial arteries was performed. Rotating maximum intensity projection images were generated. FINDINGS: INTERNAL CAROTID ARTERIES: Normal flow related signal. The skull base, petrous, cavernous and supraclinoid segments are bilaterally widely patient. ANTERIOR CEREBRAL ARTERIES: Normal flow related signal. A1 and A2 segments are widely patent. Smaller distal branches unremarkable, as visualized. The right A1 segment is hypoplastic, an anatomic variant. MIDDLE CEREBRAL ARTERIES: Normal flow related signal. M1 and M2 segments are widely patent. Perisylvian branches grossly symmetric. POSTERIOR CIRCULATION: Basilar Artery: Normal flow related signal. Normal in caliber and widely patent. Distal Vertebral Arteries: Normal flow related signal. Widely patent. Posterior Cerebral Arteries: Normal flow related signal. Widely patent. Posterior Inferior Cerebellar Arteries: Normal flow related signal. Widely patent. ANEURYSM/ VASCULAR MALFORMATIONS: None. OTHER FINDINGS: None. IMPRESSION: Normal noncontrast MR angiography of the brain.
--- NOTE | 2018-06-26 15:02 | MRI ---
Date of service: 06/26/2018 PROCEDURE: MR Angiography of the neck without contrast HISTORY: r/o cva COMPARISON: None available. TECHNIQUE: 3D [id number] angiography of the neck was performed. Rotating maximum intensity projection images of the cervical carotid and vertebral arteries were generated. The origins of the common carotid arteries were not visualized, which is a limitation inherent to the non-contrast time of flight technique. FINDINGS: RIGHT CAROTID ARTERIES: Common Carotid Artery: Normal. Carotid Bifurcation: Normal. Internal Carotid Artery:Normal. External Carotid Artery (proximal branches): Normal. LEFT CAROTID ARTERIES: Common Carotid Artery: Normal. Carotid Bifurcation: Normal. Internal Carotid Artery:Normal. External Carotid Artery (proximal branches): Normal. VERTEBRAL ARTERIES: Right Vertebral Artery: Normal. Left Vertebral Artery: Normal. OTHER FINDINGS: None. IMPRESSION: No evidence of hemodynamically significant stenosis in the internal carotid arteries. Patent vertebral arteries.
--- NOTE | 2018-06-26 19:11 | CARD ---
APPROVED REPORT Date of service: 06/26/2018 EXAM: Two-dimensional and M-mode echocardiogram with Doppler and color Doppler. Other Information Quality : GoodRhythm : NSR INDICATION CVA/TIA 2D DIMENSIONS IVSd0.79 (0.7-1.1cm)LVDd3.53 (3.9-5.9cm) LVOT Diameter1.68 (1.8-2.4cm)PWd0.78 (0.7-1.1cm) IVSs0.75 (0.8-1.2cm)LVDs2.48 (2.5-4.0cm) FS (%) 29.6 %PWs0.89 (0.8-1.2cm) M-Mode DIMENSIONS Left Atrium (MM)2.72 (2.5-4.0cm)IVSd0.69 (0.7-1.1cm) Aortic Root2.89 (2.2-3.7cm)LVDd3.85 (4.0-5.6cm) Aortic Cusp Exc.1.72 (1.5-2.0cm)PWd0.65 (0.7-1.1cm) IVSs0.98 cmFS (%) 42 % LVDs2.25 (2.0-3.8cm)PWs1.19 cm Aortic Valve AoV Peak Qlfllbmd980.2cm/sAoV VTI23.9cmAO Peak GR.8mmHg LVOT Peak Oeeanefl152.0cm/sLVOT VTI21.54cmAO Mean GR.4mmHg BRIELLE (VMAX)1.37im9IVS (VTI)1.35cm2 Mitral Valve MV E Dtfqfxwh55.3cm/sMV DECEL [id number] A Hstnqzde16.8cm/s MV HEP22zvR/A ratio0.7MVA (PHT)2.98cm2 TDI Lateral E' Peak V8.39cm/sMedial E' Peak V4.64cm/sE/Lateral E'7.8 E/Medial E'14.1 Tricuspid Valve TR Peak Hlhvjulv450cb/sRAP MPGQVMDN16mtDjVW Peak Gr.20mmHg UDQH05juIp LEFT VENTRICLE The left ventricle is normal size. There is normal left ventricular wall thickness. The left ventricular systolic function is normal. The estimated ejection fraction is 55-60% No regional wall motion abnormalities noted.. Transmitral Doppler flow pattern is Grade I-abnormal relaxation pattern. No left ventricle thrombus noted on this study. There is no ventricular septal defect visualized. There is no left ventricular aneurysm. There is no mass noted in the left ventricle. RIGHT VENTRICLE The right ventricle is normal size. There is normal right ventricular wall thickness. The right ventricular systolic function is normal. ATRIA The left atrium size is normal. The right atrium size is normal. The interatrial septum is intact with no evidence for an atrial septal defect. AORTIC VALVE The aortic valve is normal in structure. No aortic regurgitation is present. There is no aortic valvular stenosis. There is no aortic valvular vegetation. MITRAL VALVE The mitral valve is normal in structure. There is no evidence of mitral valve prolapse. There is no mitral valve stenosis. There is trace to mild mitral valve regurgitation noted. TRICUSPID VALVE The tricuspid valve is normal in structure. There is trace tricuspid valve regurgitation noted. RVSP is calculated at 25 mm Hg. There is no tricuspid valve prolapse or vegetation. There is no tricuspid valve stenosis. PULMONIC VALVE The pulmonary valve is normal in structure. There is no pulmonic valvular regurgitation. There is no pulmonic valvular stenosis. GREAT VESSELS The aortic root is normal in size. The ascending aorta is normal in size. The pulmonary artery is normal. The IVC is normal in size and collapses >50% with inspiration. PERICARDIAL EFFUSION There is no pericardial effusion. There is no pleural effusion. <Conclusion> The estimated ejection fraction is 55-60% Transmitral Doppler flow pattern is Grade I-abnormal relaxation pattern. The left atrium size is normal. There is trace to mild mitral valve regurgitation noted. There is trace tricuspid valve regurgitation noted. RVSP is calculated at 25 mm Hg.
--- NOTE | 2018-06-27 01:25 | CP.PCM.PN ---
Subjective - Date & Time of Evaluation Date of Evaluation: 06/26/18 Time of Evaluation: 13:20 - Subjective Subjective: Seen and examined at the bed side. No New complaint. Waiting further testing as per Neurologist recommendation. Objective - Vital Signs/Intake and Output Vital Signs (last 24 hours): Temp Pulse Resp BP Pulse Ox 97.8 F 64 16 107/58 L 97 06/27/18 00:15 06/27/18 00:15 06/27/18 00:15 06/27/18 00:15 06/27/18 00:15 - Medications Medications: Current Medications Aspirin (Ecotrin) 81 mg PO DAILY [facility] Last Admin: 06/26/18 09:11 Dose: 81 mg Atorvastatin Calcium (Lipitor) 20 mg PO [facility] Last Admin: 06/26/18 21:00 Dose: 20 mg Clopidogrel Bisulfate (Plavix) 75 mg PO DAILY [facility] Last Admin: 06/26/18 09:08 Dose: 75 mg Enoxaparin Sodium (Lovenox) 40 mg SC DAILY [facility]; Protocol Last Admin: 06/26/18 09:08 Dose: 40 mg Ergocalciferol (Drisdol 50,000 Intl Units Cap) 1 cap PO [facility] Insulin Human Lispro (Humalog) 0 units SC [facility]; Protocol Last Admin: 06/26/18 23:36 Dose: Not Given Levothyroxine Sodium (Synthroid) 50 mcg PO DAILY@0630 [facility] Last Admin: 06/26/18 06:02 Dose: 50 mcg Lisinopril (Zestril) 2.5 mg PO DAILY [facility] Last Admin: 06/26/18 09:07 Dose: 2.5 mg Metformin HCl (Glucophage) 500 mg PO BIDWM [facility] Last Admin: 06/26/18 16:45 Dose: 500 mg Montelukast Sodium (Singulair) 10 mg PO HS [facility] Last Admin: 06/26/18 21:00 Dose: 10 mg Pantoprazole Sodium (Protonix Ec Tab) 40 mg PO DAILY [facility] Last Admin: 06/26/18 09:08 Dose: 40 mg - Labs Labs: 06/24/18 15:02 06/24/18 15:02 - Additional Findings Additional findings: TTE: Normal EF, No thrombus. Assessment and Plan (1) TIA (transient ischemic attack) Status: Acute (2) Diabetes mellitus type 2 in nonobese Status: Acute (3) Dizziness Status: Acute (4) Hypothyroidism Status: Acute - Assessment and Plan (Free Text) Plan: Continue current Care
[2018-06-27] MEDS: Levothyroxine 50 MCG TAB PO SCH (05:37)
[2018-06-27 08:12] VITALS: RESP 18; O2SAT 96
[2018-06-27] MEDS: Enoxaparin 40 mg Syringe SC SCH (09:41)
[2018-06-27] MEDS: Insulin Lispro (humaLOG) 100 Units/ml Inj SC SCH (09:41)
[2018-06-27] MEDS: Pantoprazole 40 mg EC Tab PO SCH (09:42)
[2018-06-27 11:49] VITALS: BP 120/66; PULSE 76; TEMP 98
--- NOTE | 2018-06-27 12:58 | CP.PCM.PCO ---
Assessment/Plan - Assessment and Plan (Free Text) Assessment: Patient seen and examined today VSS All imaging reviewed and discussed with Neuro. MRA Head and Neck normal Patient needs Platelet function testing, not available to be done inpatient so will be ordered outpatient before switching the aspirin and plavix to another antiplatelet agent. Will follow up with Dr Angeles outpatient Discussed with MD who agrees. For DC today.
--- NOTE | 2018-06-27 13:33 | CP.PCM.PCO ---
Physician Communication Note - Physician Communication Note Physician Communication Note: pt may be d/c from neuro; F/U with PMD for platelet fx test by next week.
--- NOTE | 2018-06-27 21:30 | CP.PCM.DIS ---
Provider - Provider Date of Admission: 06/26/18 16:49 Attending physician: Gissel Angeles MD Consults: 06/24/18 22:40 Social Work Referral Routine Comment: lives alone Physician Instructions: Reason For Exam: lives alone 06/25/18 17:14 Neurology Consult Routine Comment: Consulting Provider: Marcos Go Consulting Physician: Marcos Go Reason for Consult: right side facial numbess, hx of TIA Time Spent in preparation of Discharge (in minutes): 30 Diagnosis - Discharge Diagnosis (1) TIA (transient ischemic attack) Status: Acute Priority: High (2) Diabetes mellitus type 2 in nonobese Status: Acute Priority: High (3) Dizziness Status: Acute Priority: High (4) Hypothyroidism Status: Acute Priority: Low Hospital Course - Lab Results Lab Results: Most Recent Lab Values WBC 5.7 K/uL (4.8-10.8) 06/24/18 15:02 RBC 3.97 Mil/uL (3.80-5.20) 06/24/18 15:02 Hgb 11.7 g/dL (12.0-16.0) L 06/24/18 15:02 Hct 35.7 % (34.0-47.0) 06/24/18 15:02 MCV 89.8 fl (81.0-99.0) 06/24/18 15:02 MCH 29.4 pg (27.0-31.0) 06/24/18 15:02 MCHC 32.8 g/dL (33.0-37.0) L 06/24/18 15:02 RDW 13.5 % (11.5-14.5) 06/24/18 15:02 Plt Count 240 K/uL (130-400) 06/24/18 15:02 MPV 8.2 fl (7.2-11.7) 06/24/18 15:02 Neut % (Auto) 60.5 % (50.0-75.0) 06/24/18 15:02 Lymph % (Auto) 23.8 % (20.0-40.0) 06/24/18 15:02 [place] % (Auto) 10.2 % (0.0-10.0) H 06/24/18 15:02 Eos % (Auto) 4.8 % (0.0-4.0) H 06/24/18 15:02 Baso % (Auto) 0.7 % (0.0-2.0) 06/24/18 15:02 Neut # (Auto) 3.5 K/uL (1.8-7.0) 06/24/18 15:02 Lymph # (Auto) 1.4 K/uL (1.0-4.3) 06/24/18 15:02 [place] # (Auto) 0.6 K/uL (0.0-0.8) 06/24/18 15:02 Eos # (Auto) 0.3 K/uL (0.0-0.7) 06/24/18 15:02 Baso # (Auto) 0.0 K/uL (0.0-0.2) 06/24/18 15:02 Sodium 141 mmol/l (132-148) 06/24/18 15:02 Potassium 4.7 MMOL/L (3.6-5.0) 06/24/18 15:02 Chloride 102 mmol/L (98-107) 06/24/18 15:02 Carbon Dioxide 31 mmol/L (22-30) H 06/24/18 15:02 Anion Gap 13 (10-20) 06/24/18 15:02 BUN 16 mg/dl (7-17) 06/24/18 15:02 Creatinine 0.6 mg/dl (0.7-1.2) L 06/24/18 15:02 Est GFR ( Amer) > 60 06/24/18 15:02 Est GFR (Non-Af Amer) > 60 06/24/18 15:02 POC Glucose (mg/dL) 261 mg/dL (65-110) H 06/27/18 10:54 Random Glucose 137 mg/dL (65-105) H 06/24/18 15:02 Hemoglobin A1c 7.2 % (4.2-6.5) H 06/25/18 05:00 Calcium 9.7 mg/dL (8.4-10.2) 06/24/18 15:02 Total Bilirubin 0.2 mg/dl (0.2-1.3) 06/24/18 15:02 AST 29 U/L (14-36) 06/24/18 15:02 ALT 33 U/L (9-52) 06/24/18 15:02 Alkaline Phosphatase 66 U/L (38-126) 06/24/18 15:02 Total Protein 7.3 G/DL (6.3-8.2) 06/24/18 15:02 Albumin 4.2 g/dL (3.5-5.0) 06/24/18 15:02 Globulin 3.1 gm/dL (2.2-3.9) 06/24/18 15:02 Albumin/Globulin Ratio 1.3 (1.0-2.1) 06/24/18 15:02 Triglycerides 154 mg/DL (0-149) H 06/25/18 05:00 Cholesterol 137 mg/dL (0-199) 06/25/18 05:00 LDL Cholesterol Direct 68 mg/dL (0-129) 06/25/18 05:00 HDL Cholesterol 48 MG/DL (30-70) 06/25/18 05:00 TSH 3rd Generation 1.02 mIU/ML (0.46-4.68) 06/25/18 05:00 Discharge Exam - Head Exam Head Exam: ATRAUMATIC, NORMAL INSPECTION, NORMOCEPHALIC Discharge Plan - Follow Up Plan Condition: FAIR Disposition: HOME/ ROUTINE Instructions: Transient Ischemic Attack (DC) Additional Instructions: follow up with primary doctor in 1 week always [facility] [phone] Referrals: Radha Dyson MD [Family Provider] - Gissel Angeles MD [Staff Provider] -
[2018-06-30] MEDS ORDERED: Ergocalciferol 50,000 Intl Units Cap PO SCH (09:00)
== END 2018-06-27 16:00 | disposition home health service (06) | DRG 69 ==
LOC: H.ER 09:59 → H.ERHOLD 16:49 → H.TEL 21:17 → OBSVTOIN 06-26 16:49 → H.TEL 06-26 17:29
PROVIDERS: ADMIT Internal Medicine; ATTEND Internal Medicine
DX: G45.9 Transient cerebral ischemic attack, unspecified (principal); I10 Essential (primary) hypertension; E03.9 Hypothyroidism, unspecified; E11.9 Type 2 diabetes mellitus without complications; M81.0 Age-related osteoporosis without current pathological fracture; E78.00 Pure hypercholesterolemia, unspecified; J45.909 Unspecified asthma, uncomplicated; Z86.73 Personal history of transient ischemic attack (TIA), and cerebral infarction without residual deficits; Z79.02 Long term (current) use of antithrombotics/antiplatelets; Z79.82 Long term (current) use of aspirin; Z79.84 Long term (current) use of oral hypoglycemic drugs; Z91.041 Radiographic dye allergy status; Z88.2 Allergy status to sulfonamides; Z91.013 Allergy to seafood